=== PATIENT | female | born 1950 | race Caucasian/White ===

== ENCOUNTER 2017-06-02 15:59 | Emergency (ER) | payer MEDICARE, OTHER ==
[~2017-06-02] VITALS: Ht 154.9 cm; Wt 74.8 kg
[~2017-06-02 15:59] MED LIST: ALLO100 PO; AMIT25; AMLO5; ESTR.05TPW; FENO160; FENO160 PO; GEMF600; LEVSOD100; METO100ER; PIOG15; QUET100; TOPI100; TRAM50; TRIHYD253B
[2017-06-02 17:27] LABS: BASOPHILS ABSOLUTE AUTO 0.02 K/mm3 (0.00-0.23); BASOPHILS PERCENT AUTO 0 % (0-2); EOSINOPHILS ABSOLUTE AUTO 0.18 K/mm3 (0.00-0.68); EOSINOPHILS PERCENT AUTO 2 % (0-6); Hematocrit 35.1 % (33.0-51.0); Hemoglobin 11.3 g/dL (11.5-16.0); IMMATURE GRAN ABSOLUTE AUTO 0.08 K/mm3 (0.00-0.10); IMMATURE GRAN PERCENT AUTO 1 % (0-1); LYMPHOCYTES ABSOLUTE AUTO 3.09 K/mm3 (0.84-5.20); LYMPHOCYTES PERCENT AUTO 28 % (21-46); MONOCYTES ABSOLUTE AUTO 0.42 K/mm3 (0.16-1.47); MONOCYTES PERCENT AUTO 4 % (4-13); Mean Corpuscular HGB 31.8 pg (26.0-34.0); Mean Corpuscular HGB Conc 32.2 g/dL (31.5-36.5); Mean Corpuscular Volume 99 fL (80-100); Mean Platelet Volume 11.1 fL (9.1-12.4); NEUTROPHILS ABSOLUTE AUTO 7.33 K/mm3 (1.96-9.15); NEUTROPHILS PERCENT AUTO 66 % (41-73); Platelet Count 334 K/mm3 (150-400); RDW Standard Deviation 55.8 fL (35.1-46.3); Red Blood Cell Count 3.55 M/mm3 (3.80-5.20); White Blood Cell Count 11.12 K/mm3 (4.00-11.30)
[2017-06-02 17:51] LABS: Albumin, Blood 3.3 g/dL (3.4-5.0); Albumin/Globulin Ratio 0.8 (0.8-1.8); Bilirubin, Total 0.3 mg/dL (0.1-1.0); Bun/Creatinine Ratio 20.6 (12.0-20.0); Calcium, Blood 9.8 mg/dL (8.5-10.1); Creatinine, Blood 1.8 mg/dL (0.40-1.00); Globulin, Blood 4.1 g/dL (2.2-4.0); Potassium, Blood 3.9 mmol/L (3.5-5.5); Total Protein, Blood 7.4 g/dL (6.4-8.2)
[2017-06-02] MEDS ORDERED: QUET25 PO (19:02)
[2017-06-02] MEDS ORDERED: ASPI81CH PO (19:32)
[2017-06-02] MEDS ORDERED: DOXA2 PO (19:37)
[2017-06-02] MEDS ORDERED: RANI150 (19:38)
[2017-06-02] MEDS ORDERED: Pepcid40 MG PO (20:14)
[2017-06-02] MEDS ORDERED: Prednisone20 MG PO (20:14)
[2017-06-02] MEDS ORDERED: BENADRYL25 MG PO (20:14)
[2017-06-02] MEDS ORDERED: Norco 5-325 Ta1 EACH PO (21:33)
[2017-06-02] MEDS ORDERED: DOXY100T53 PO (21:33)
== END 2017-06-02 22:00 | disposition home or self-care (01) ==
LOC: ER 15:59
PROVIDERS: Physician Assistant
DX: I73.9 Peripheral vascular disease, unspecified (principal); L03.115 Cellulitis of right lower limb; L50.9 Urticaria, unspecified; F17.200 Nicotine dependence, unspecified, uncomplicated; Z88.0 Allergy status to penicillin; Z88.5 Allergy status to narcotic agent; Z88.8 Allergy status to other drugs, medicaments and biological substances; Z79.899 Other long term (current) drug therapy
CPT/HCPCS: 36415; 73630; 80053; 85025; 93923; 93971; 99284

== ENCOUNTER 2017-06-15 17:00 | Emergency (ER) | payer MEDICARE, OTHER ==
[~2017-06-15] VITALS: Ht 157.5 cm; Wt 61.2 kg
[~2017-06-15 17:00] MED LIST changes: +ASPI81CH PO; +BENADRYL25 MG PO; +DOXA2 PO; +DOXY100T53 PO; +Norco 5-325 Ta1 EACH PO; +Pepcid40 MG PO; +Prednisone20 MG PO; +QUET25 PO; +RANI150
[2017-06-15 18:37] LABS: BASOPHILS ABSOLUTE AUTO 0.04 K/mm3 (0.00-0.23); BASOPHILS PERCENT AUTO 0 % (0-2); EOSINOPHILS ABSOLUTE AUTO 0.21 K/mm3 (0.00-0.68); EOSINOPHILS PERCENT AUTO 2 % (0-6); Hematocrit 33.1 % (33.0-51.0); Hemoglobin 11.1 g/dL (11.5-16.0); IMMATURE GRAN ABSOLUTE AUTO 0.12 K/mm3 (0.00-0.10); IMMATURE GRAN PERCENT AUTO 1 % (0-1); LYMPHOCYTES ABSOLUTE AUTO 3.46 K/mm3 (0.84-5.20); LYMPHOCYTES PERCENT AUTO 25 % (21-46); MONOCYTES ABSOLUTE AUTO 0.55 K/mm3 (0.16-1.47); MONOCYTES PERCENT AUTO 4 % (4-13); Mean Corpuscular HGB Conc 33.5 g/dL (31.5-36.5); Mean Platelet Volume 11.5 fL (9.1-12.4); NEUTROPHILS ABSOLUTE AUTO 9.45 K/mm3 (1.96-9.15); NEUTROPHILS PERCENT AUTO 68 % (41-73); Platelet Count 380 K/mm3 (150-400); RDW Coefficient Variation 14.9 % (11.7-14.2); Red Blood Cell Count 3.47 M/mm3 (3.80-5.20); White Blood Cell Count 13.83 K/mm3 (4.00-11.30)
[2017-06-15 18:39] LABS: Mean Corpuscular Volume 95 fL (80-100)
[2017-06-15 18:50] LABS: Albumin, Blood 2.6 g/dL (3.4-5.0); Albumin/Globulin Ratio 0.9 (0.8-1.8); Bilirubin, Total 0.4 mg/dL (0.1-1.0); Bun/Creatinine Ratio 28.7 (12.0-20.0); Calcium, Blood 8.5 mg/dL (8.5-10.1); Creatinine, Blood 1.74 mg/dL (0.40-1.00); Globulin, Blood 2.9 g/dL (2.2-4.0); Total Protein, Blood 5.5 g/dL (6.4-8.2)
== END 2017-06-15 21:35 | disposition home or self-care (01) ==
LOC: ER 17:00
PROVIDERS: Emergency Medicine
DX: I73.9 Peripheral vascular disease, unspecified (principal); I10 Essential (primary) hypertension; F17.200 Nicotine dependence, unspecified, uncomplicated; Z88.0 Allergy status to penicillin; Z88.5 Allergy status to narcotic agent; Z88.8 Allergy status to other drugs, medicaments and biological substances; Z79.899 Other long term (current) drug therapy; Z79.82 Long term (current) use of aspirin
CPT/HCPCS: 36415; 80053; 83605; 85025; 87040; 93005; 93010; 99283

== ENCOUNTER 2017-06-26 16:17 | Inpatient (IN) | payer MEDICARE, OTHER ==
[~2017-06-26] VITALS: Ht 157.5 cm; Wt 60.2 kg
[2017-06-27 06:03] LABS: BASOPHILS ABSOLUTE AUTO 0.02 K/mm3 (0.00-0.23); BASOPHILS PERCENT AUTO 0 % (0-2); EOSINOPHILS ABSOLUTE AUTO 0.19 K/mm3 (0.00-0.68); EOSINOPHILS PERCENT AUTO 2 % (0-6); Hematocrit 24.8 % (33.0-51.0); IMMATURE GRAN ABSOLUTE AUTO 0.08 K/mm3 (0.00-0.10); IMMATURE GRAN PERCENT AUTO 1 % (0-1); LYMPHOCYTES ABSOLUTE AUTO 2.08 K/mm3 (0.84-5.20); LYMPHOCYTES PERCENT AUTO 18 % (21-46); MONOCYTES ABSOLUTE AUTO 0.66 K/mm3 (0.16-1.47); MONOCYTES PERCENT AUTO 6 % (4-13); Mean Corpuscular HGB 31.1 pg (26.0-34.0); Mean Corpuscular HGB Conc 32.3 g/dL (31.5-36.5); Mean Corpuscular Volume 97 fL (80-100); Mean Platelet Volume 11.3 fL (9.1-12.4); NEUTROPHILS ABSOLUTE AUTO 8.28 K/mm3 (1.96-9.15); NEUTROPHILS PERCENT AUTO 73 % (41-73); Platelet Count 243 K/mm3 (150-400); RDW Standard Deviation 53.1 fL (35.1-46.3); Red Blood Cell Count 2.57 M/mm3 (3.80-5.20); White Blood Cell Count 11.31 K/mm3 (4.00-11.30)
[2017-06-27 06:18] LABS: Bun/Creatinine Ratio 12.3 (12.0-20.0); Calcium, Blood 8.6 mg/dL (8.5-10.1); Creatinine, Blood 1.38 mg/dL (0.40-1.00)
[2017-06-27 06:19] LABS: International Normalized Ratio 1.13; Prothrombin Time Results 11.8 Sec (9.7-11.5)
[2017-06-28 05:11] LABS: Bun/Creatinine Ratio 11.3 (12.0-20.0); Calcium, Blood 8.4 mg/dL (8.5-10.1); Creatinine, Blood 1.42 mg/dL (0.40-1.00); Potassium, Blood 4.1 mmol/L (3.5-5.5)
[2017-06-28 08:46] LABS: Hemoglobin 8.1 g/dL (11.5-16.0)
[2017-06-28 13:43] LABS: Hemoglobin 7.9 g/dL (11.5-16.0)
[2017-06-29 04:05] LABS: BASOPHILS ABSOLUTE AUTO 0.01 K/mm3 (0.00-0.23); BASOPHILS PERCENT AUTO 0 % (0-2); EOSINOPHILS ABSOLUTE AUTO 0.17 K/mm3 (0.00-0.68); EOSINOPHILS PERCENT AUTO 1 % (0-6); Hematocrit 23.2 % (33.0-51.0); Hemoglobin 7.4 g/dL (11.5-16.0); IMMATURE GRAN ABSOLUTE AUTO 0.07 K/mm3 (0.00-0.10); IMMATURE GRAN PERCENT AUTO 1 % (0-1); LYMPHOCYTES ABSOLUTE AUTO 1.59 K/mm3 (0.84-5.20); LYMPHOCYTES PERCENT AUTO 12 % (21-46); MONOCYTES ABSOLUTE AUTO 0.76 K/mm3 (0.16-1.47); MONOCYTES PERCENT AUTO 6 % (4-13); Mean Corpuscular HGB 31.6 pg (26.0-34.0); Mean Corpuscular HGB Conc 31.9 g/dL (31.5-36.5); Mean Corpuscular Volume 99 fL (80-100); Mean Platelet Volume 11.2 fL (9.1-12.4); NEUTROPHILS PERCENT AUTO 80 % (41-73); Platelet Count 276 K/mm3 (150-400); RDW Coefficient Variation 15.4 % (11.7-14.2); RDW Standard Deviation 55.3 fL (35.1-46.3); Red Blood Cell Count 2.34 M/mm3 (3.80-5.20)
[2017-06-29 04:36] LABS: Calcium, Blood 8.3 mg/dL (8.5-10.1); Creatinine, Blood 1.4 mg/dL (0.40-1.00); Potassium, Blood 3.8 mmol/L (3.5-5.5)
[2017-06-29] MEDS ORDERED: ATOR10 PO (14:23)
[2017-06-29] MEDS ORDERED: FAMO20 PO (14:24)
[2017-06-29] MEDS ORDERED: CLOP75 PO (14:24)
[2017-06-29] MEDS ORDERED: Nicotine Patch1 EAC5 TOP (14:40)
[2017-06-29] MEDS ORDERED: LISI20 PO (14:40)
[2017-06-29] MEDS ORDERED: Bactrim Ds Tab1 EACH PO (14:41)
[2017-06-29] MEDS ORDERED: TOPI100 PO (14:42)
== END 2017-06-29 15:55 | disposition home or self-care (01) | DRG 253 ==
LOC: ICUW 16:17 → MEDS 16:17 → ICUW 16:18 → MEDS 16:18 → ICUW 06-28 11:14 → MEDS 06-28 11:14 → ICUW 06-28 11:14
PROVIDERS: Internal Medicine Interventional Cardiology
PROC: 3E0234Z Introduction of Serum, Toxoid and Vaccine into Muscle, Percutaneous Approach (ICD-10-PCS; 2017-06-27)
PROC: 047L3DZ Dilation of Left Femoral Artery with Intraluminal Device, Percutaneous Approach (ICD-10-PCS; principal; 2017-06-28)
PROC: 047K3DZ Dilation of Right Femoral Artery with Intraluminal Device, Percutaneous Approach (ICD-10-PCS; 2017-06-28)
PROC: 047D3DZ Dilation of Left Common Iliac Artery with Intraluminal Device, Percutaneous Approach (ICD-10-PCS; 2017-06-28)
PROC: 047C3DZ Dilation of Right Common Iliac Artery with Intraluminal Device, Percutaneous Approach (ICD-10-PCS; 2017-06-28)
PROC: 047J3DZ Dilation of Left External Iliac Artery with Intraluminal Device, Percutaneous Approach (ICD-10-PCS; 2017-06-28)
PROC: 047H3DZ Dilation of Right External Iliac Artery with Intraluminal Device, Percutaneous Approach (ICD-10-PCS; 2017-06-28)
PROC: B41D1ZZ Fluoroscopy of Aorta and Bilateral Lower Extremity Arteries using Low Osmolar Contrast (ICD-10-PCS; 2017-06-28)
DX: I70.239 Atherosclerosis of native arteries of right leg with ulceration of unspecified site (principal); I70.92 Chronic total occlusion of artery of the extremities; J44.9 Chronic obstructive pulmonary disease, unspecified; E03.9 Hypothyroidism, unspecified; L97.219 Non-pressure chronic ulcer of right calf with unspecified severity; L97.419 Non-pressure chronic ulcer of right heel and midfoot with unspecified severity; I70.0 Atherosclerosis of aorta; I35.0 Nonrheumatic aortic (valve) stenosis; F10.11 Alcohol abuse, in remission; F17.210 Nicotine dependence, cigarettes, uncomplicated; F31.9 Bipolar disorder, unspecified; I12.9 Hypertensive chronic kidney disease with stage 1 through stage 4 chronic kidney disease, or unspecified chronic kidney disease; R79.89 Other specified abnormal findings of blood chemistry; N18.9 Chronic kidney disease, unspecified; Z23 Encounter for immunization; Z86.73 Personal history of transient ischemic attack (TIA), and cerebral infarction without residual deficits; Z79.82 Long term (current) use of aspirin; Z79.51 Long term (current) use of inhaled steroids; Z79.899 Other long term (current) drug therapy; Z88.5 Allergy status to narcotic agent; Z88.0 Allergy status to penicillin
CPT/HCPCS: 36415; 37221; 37222; 37223; 75625; 75716; 80048; 85014; 85018; 85025; 85347; 85610; 85730; 93306; 99152; 99153; C1725; C1769; C1876; C1887; C1894; G0008; G0378; J0360; J1644; J1956; J2250; J2720; J3010; J7030; J7040; Q2038; Q9967

== ENCOUNTER 2017-07-01 14:59 | Emergency (ER) | payer MEDICARE, OTHER ==
[~2017-07-01] VITALS: Ht 165.1 cm; Wt 61.2 kg
[~2017-07-01 14:59] MED LIST changes: +ATOR10 PO; +Bactrim Ds Tab1 EACH PO; +CLOP75 PO; +FAMO20 PO; +LISI20 PO; +Nicotine Patch1 EAC5 TOP; +TOPI100 PO
[2017-07-01 15:30] LABS: Calcium, Ionized (POC) 1.23 mmol/L (1.10-1.46); Chloride (POC) 108 mmol/L (98-108); Creatinine (POC) 2.5 mg/dL (0.6-1.0); Glucose (ISTAT POC) 128 mg/dL (70-99); Hemoglobin (POC) 5.1 g/dL (12.0-16.0); Potassium (POC) 5.1 mmol/L (3.5-5.5); Sodium (POC) 135 mmol/L (135-148); Total CO2 (POC) 19 mmol/L (21-32)
[2017-07-01 15:36] LABS: PO2 Arterial 125 mmHg (80-100); pH Blood Arterial 7.45 (7.35-7.45)
[2017-07-01 16:10] LABS: Alanine Aminotransfer (ALT/SGP 19 U/L (12-78); Albumin, Blood 1.5 g/dL (3.4-5.0); Albumin/Globulin Ratio 0.4 (0.8-1.8); Alk Phos 61 U/L (50-136); Anion Gap 11 mmol/L (6-16); Aspartate Aminotrans (AST/SGOT 16 U/L (12-37); Bilirubin, Total 0.2 mg/dL (0.1-1.0); Blood Urea Nitrogen 55 mg/dL (8-24); Bun/Creatinine Ratio 25.8 (12.0-20.0); CO2, Blood 19 mmol/L (21-32); Calcium, Blood 8.8 mg/dL (8.5-10.1); Chloride, Blood 108 mmol/L (98-108); Creatinine, Blood 2.13 mg/dL (0.40-1.00); Ethanol (Alcohol), Blood, Med <3 mg/dL; Globulin, Blood 3.8 g/dL (2.2-4.0); Glomerular Filtration Rate 24 (60-); Glucose, Blood 128 mg/dL (70-99); Magnesium, Blood 2.1 mg/dL (1.6-2.4); Potassium, Blood 5.1 mmol/L (3.5-5.5); Sodium, Blood 138 mmol/L (136-145); Total Protein, Blood 5.3 g/dL (6.4-8.2); Troponin I 0.103 ng/mL (0.000-0.040)
[2017-07-01 16:14] LABS: BASOPHILS ABSOLUTE AUTO 0.01 K/mm3 (0.00-0.23); BASOPHILS PERCENT AUTO 0 % (0-2); EOSINOPHILS ABSOLUTE AUTO 0.01 K/mm3 (0.00-0.68); EOSINOPHILS PERCENT AUTO 0 % (0-6); IMMATURE GRAN ABSOLUTE AUTO 0.33 K/mm3 (0.00-0.10); IMMATURE GRAN PERCENT AUTO 2 % (0-1); LYMPHOCYTES ABSOLUTE AUTO 2.29 K/mm3 (0.84-5.20); LYMPHOCYTES PERCENT AUTO 13 % (21-46); MONOCYTES ABSOLUTE AUTO 1.05 K/mm3 (0.16-1.47); MONOCYTES PERCENT AUTO 6 % (4-13); Mean Corpuscular HGB 30.7 pg (26.0-34.0); Mean Corpuscular HGB Conc 30.9 g/dL (31.5-36.5); Mean Corpuscular Volume 99 fL (80-100); Mean Platelet Volume 11.3 fL (9.1-12.4); NEUTROPHILS ABSOLUTE AUTO 14.61 K/mm3 (1.96-9.15); NEUTROPHILS PERCENT AUTO 80 % (41-73); NRBC ABSOLUTE 0.02 K/mm3 (0.00-0.02); NRBC Auto 0.1 /100 WBC (0.0-0.2); Platelet Count 370 K/mm3 (150-400); RDW Coefficient Variation 15.5 % (11.7-14.2); RDW Standard Deviation 56.2 fL (35.1-46.3); Red Blood Cell Count 1.63 M/mm3 (3.80-5.20)
[2017-07-01 16:17] LABS: Hematocrit 16.2 % (33.0-51.0)
[2017-07-01 16:51] LABS: Influenza A Negative (NEGATIVE); Influenza B Negative (NEGATIVE)
[2017-07-01 16:59] LABS: Source, Urine Catheter
[2017-07-01 17:22] LABS: Bilirubin, Urine Neg (Neg); Blood, Urine Neg (Neg); Glucose Qualitative, Urine Neg (Neg); Ketones, Urine Neg (Neg); Leukocyte Esterase, Urine Neg (Neg); Nitrite, Urine Neg (Neg); Protein, Urine 1+ (Neg); Specific Gravity, Urine 1.015 (1.003-1.022); Urobilinogen, Urine NORM (Normal)
[2017-07-01 17:34] LABS: International Normalized Ratio 1.22; Prothrombin Time Results 12.8 Sec (9.7-11.5)
[2017-07-01 17:34] LABS: U Amphetamine Screen Not Detected; U Barbituate Screen Not Detected; U Benzodiazapine Screen Not Detected; U Buprenorphine Screen Not Detected; U Cannabinoids Screen Not Detected; U Cocaine Screen Not Detected; U Methadone Screen Not Detected; U Methamphetamine Screen Not Detected; U Opiates Screen Not Detected; U Oxycodone Screen Not Detected; U Phencyclidine Screen Not Detected; U Propoxyphene Screen Not Detected
[2017-07-01 17:38] LABS: Appearance, Urine Clear (Clear); Color, Urine Yellow (P-Yellow)
[2017-07-01 19:43] LABS: BASOPHILS ABSOLUTE AUTO 0.02 K/mm3 (0.00-0.23); BASOPHILS PERCENT AUTO 0 % (0-2); EOSINOPHILS ABSOLUTE AUTO 0.01 K/mm3 (0.00-0.68); EOSINOPHILS PERCENT AUTO 0 % (0-6); Hematocrit 23.3 % (33.0-51.0); Hemoglobin 7.5 g/dL (11.5-16.0); IMMATURE GRAN ABSOLUTE AUTO 0.27 K/mm3 (0.00-0.10); IMMATURE GRAN PERCENT AUTO 2 % (0-1); LYMPHOCYTES ABSOLUTE AUTO 2.26 K/mm3 (0.84-5.20); LYMPHOCYTES PERCENT AUTO 15 % (21-46); MONOCYTES ABSOLUTE AUTO 1.02 K/mm3 (0.16-1.47); MONOCYTES PERCENT AUTO 7 % (4-13); Mean Corpuscular HGB 29.9 pg (26.0-34.0); Mean Corpuscular HGB Conc 32.2 g/dL (31.5-36.5); Mean Platelet Volume 10.9 fL (9.1-12.4); NEUTROPHILS ABSOLUTE AUTO 11.63 K/mm3 (1.96-9.15); NEUTROPHILS PERCENT AUTO 76 % (41-73); Platelet Count 294 K/mm3 (150-400); RDW Coefficient Variation 16.1 % (11.7-14.2); RDW Standard Deviation 53.6 fL (35.1-46.3); Red Blood Cell Count 2.51 M/mm3 (3.80-5.20); White Blood Cell Count 15.21 K/mm3 (4.00-11.30)
[2017-07-01 19:50] LABS: Mean Corpuscular Volume 93 fL (80-100)
== END 2017-07-01 20:55 | disposition short-term general hospital (02) ==
LOC: ER 14:59
PROVIDERS: Emergency Medicine
DX: K92.2 Gastrointestinal hemorrhage, unspecified (principal); D50.0 Iron deficiency anemia secondary to blood loss (chronic); I24.8 Other forms of acute ischemic heart disease; R79.89 Other specified abnormal findings of blood chemistry; R41.82 Altered mental status, unspecified; I10 Essential (primary) hypertension; F17.200 Nicotine dependence, unspecified, uncomplicated; Z88.0 Allergy status to penicillin; Z88.5 Allergy status to narcotic agent; Z88.8 Allergy status to other drugs, medicaments and biological substances; Z79.899 Other long term (current) drug therapy; Z79.82 Long term (current) use of aspirin
CPT/HCPCS: 36415; 36430; 36600; 51702; 70450; 71045; 74176; 80047; 80053; 82272; 82803; 83605; 83690; 83735; 83880; 84484; 85014; 85025; 85610; 85730; 86850; 86900; 86901; 86923; 87040; 87804; 93005; 93010; 96361; 96365; 96367; 96368; 96375; 96376; 99285; C9113; G0480; J1956; J2405; J3370; J7030; J7120; P9016

== ENCOUNTER → 2018-06-11 | Outpatient (CLI) | payer MEDICARE, OTHER ==
[2018-06-11 19:23] LABS: Adenovirus F 40/41 Not Detected (NOT DETECT); Astrovirus Not Detected (NOT DETECT); Campylobacter Sp Not Detected (NOT DETECT); Cryptosporidium Not Detected (NOT DETECT); Cyclospora Cayetanensis Not Detected (NOT DETECT); E. Coli O157 Not Detected (NOT DETECT); Entamoeba Histolytica Not Detected (NOT DETECT); Enteroaggregative E. coli-EAEC Not Detected (NOT DETECT); Enteropathogenic E. coli-EPEC Not Detected (NOT DETECT); Enterotoxigenic E. coli-ETEC Not Detected (NOT DETECT); Giardia Lamblia Not Detected (NOT DETECT); Norovirus GI/GII Not Detected (NOT DETECT); Plesiomonas Shigelloides Not Detected (NOT DETECT); Rotavirus A Not Detected (NOT DETECT); Salmonella Sp Not Detected (NOT DETECT); Sapovirus Not Detected (NOT DETECT); Shiga Toxin-prod E. coli-STEC Not Detected (NOT DETECT); Shigella/Enteroin E. coli-EIEC Not Detected (NOT DETECT); Vibrio Cholerae Not Detected (NOT DETECT); Vibrio Sp Not Detected (NOT DETECT); Yersinia Enterocolitica Not Detected (NOT DETECT)
== END ==
LOC: LAB SHORT 16:38 → LAB 16:38
PROVIDERS: Nurse Practitioner Family
DX: R19.7 Diarrhea, unspecified (principal)
CPT/HCPCS: 87507

== ENCOUNTER 2018-11-06 06:42 | Day surgery (SDC) | payer MEDICARE, OTHER ==
[~2018-11-06] VITALS: Ht 154.9 cm; Wt 65.5 kg
[~2018-11-06 06:42] MED LIST changes: +ACET500 PO; +ALBU90OI INH; +AMIT25 PO; +ATOR20 PO; +Anti-Diarrheal2 M1 PO; +COLE625 PO; +DONE5 PO; +FURO20 PO; +LEVSOD88 PO; +Lisinopril2.5 MG PO; +NICO21TP TOP; +NIFE30ER PO; +Seroquel50 MG PO; +Toprol Xl50 MG PO; +VITAMIN C500 M1 PO; +VITAMIN D32000 UNIT PO; +Zantac150 MG PO; +Zyloprim100 MG PO
--- NOTE | 2018-11-06 10:04 | NUR ---
PT RETURNED TO RECOVERY ROOM ON BED. PT DENIES PAIN. LEFT PEDAL ACCESS SITE SOFT NON-TENDER WITH NO HEMATOMA AND NO PULSATILE BLEEDING AND INTACT DRESSING. CALL LIGHT IN REACH.
--- NOTE | 2018-11-06 11:05 | NUR ---
NO CHANGES TO LEFT PEDAL SITE. PT SITTING UP EATING BREAKFAST. SEE NEW ORDERS FOR HTN.
--- NOTE | 2018-11-06 11:57 | NUR ---
DISCHARGE INSTRUCTIONS REVIEWED WITH PT AND CAREGIVER FAINA AND ALL QUESTIONS ANSWERED. 20 IV DISCONTINUED FROM RIGHT FOREARM WITH INTACT CANNULA. PT ESCORTED OUT BY FAINA IN WHEELCHAIR.
== END 2018-11-06 12:00 | disposition home or self-care (01) ==
LOC: MHTC 06:42
DX: I70.202 Unspecified atherosclerosis of native arteries of extremities, left leg (principal); I10 Essential (primary) hypertension; Z88.0 Allergy status to penicillin; Z88.5 Allergy status to narcotic agent; Z88.8 Allergy status to other drugs, medicaments and biological substances; Z79.899 Other long term (current) drug therapy; Z79.82 Long term (current) use of aspirin; Z79.01 Long term (current) use of anticoagulants
CPT/HCPCS: 37224; 75716; 75774; 99152; 99153; C1725; C1769; C1887; C1894; J1644; J2250; J3010; J7030; Q9967

== ENCOUNTER 2020-05-18 15:37 | Inpatient (IN) | payer MEDICARE, OTHER ==
[~2020-05-18] VITALS: Ht 152.4 cm; Wt 58.8 kg
[~2020-05-18 15:37] MED LIST changes: -ALBU90OI INH; -AMIT25 PO; +Amitriptyline H25 MG PO; +Aspirin EC81 MG PO; +LEVSOD100 PO; -LEVSOD88 PO; +Seroquel Xr50 MG PO; -Seroquel50 MG PO; +TOPI25 PO; -Toprol Xl50 MG PO; -Zyloprim100 MG PO
[2020-05-18 16:21] LABS: BASOPHILS ABSOLUTE AUTO 0.03 K/mm3 (0.00-0.23); BASOPHILS PERCENT AUTO 0 % (0-2); EOSINOPHILS PERCENT AUTO 1 % (0-6); Hematocrit 39.3 % (33.0-51.0); Hemoglobin 12.5 g/dL (11.5-16.0); IMMATURE GRAN ABSOLUTE AUTO 0.06 K/mm3 (0.00-0.10); IMMATURE GRAN PERCENT AUTO 1 % (0-1); LYMPHOCYTES ABSOLUTE AUTO 1.48 K/mm3 (0.84-5.20); LYMPHOCYTES PERCENT AUTO 13 % (21-46); MONOCYTES ABSOLUTE AUTO 0.52 K/mm3 (0.16-1.47); MONOCYTES PERCENT AUTO 5 % (4-13); Mean Corpuscular HGB 32.2 pg (26.0-34.0); Mean Corpuscular HGB Conc 31.8 g/dL (31.5-36.5); Mean Corpuscular Volume 101 fL (80-100); Mean Platelet Volume 11.5 fL (9.1-12.4); NEUTROPHILS ABSOLUTE AUTO 9.07 K/mm3 (1.96-9.15); NEUTROPHILS PERCENT AUTO 81 % (41-73); NRBC ABSOLUTE 0.02 K/mm3 (0.00-0.02); NRBC Auto 0.2 /100 WBC (0.0-0.2); Platelet Count 195 K/mm3 (150-400); RDW Coefficient Variation 16.6 % (11.7-14.2); Red Blood Cell Count 3.88 M/mm3 (3.80-5.20); White Blood Cell Count 11.26 K/mm3 (4.00-11.30)
[2020-05-18 16:39] LABS: International Normalized Ratio 0.92; Prothrombin Time Results 9.9 Sec (9.7-11.5)
[2020-05-18 16:44] LABS: Ethanol (Alcohol), Blood, Med <3 mg/dL
[2020-05-18 16:45] LABS: Alanine Aminotransfer (ALT/SGP 78 U/L (12-78); Albumin, Blood 3.1 g/dL (3.4-5.0); Albumin/Globulin Ratio 0.8 (0.8-1.8); Alk Phos 156 U/L (50-136); Anion Gap 11 mmol/L (6-16); Aspartate Aminotrans (AST/SGOT 207 U/L (12-37); Bilirubin, Total 0.2 mg/dL (0.1-1.0); Blood Urea Nitrogen 36 mg/dL (8-24); Bun/Creatinine Ratio 15.5 (12.0-20.0); CO2, Blood 14 mmol/L (21-32); Chloride, Blood 111 mmol/L (98-108); Creatinine, Blood 2.32 mg/dL (0.40-1.00); Globulin, Blood 3.7 g/dL (2.2-4.0); Glomerular Filtration Rate 22 (60-); Glucose, Blood 97 mg/dL (70-99); Potassium, Blood 4.9 mmol/L (3.5-5.5); Sodium, Blood 136 mmol/L (136-145); Total Protein, Blood 6.8 g/dL (6.4-8.2)
[2020-05-18 17:48] LABS: U Amphetamine Screen Not Detected; U Barbituate Screen Not Detected; U Benzodiazapine Screen Not Detected; U Buprenorphine Screen Not Detected; U Cannabinoids Screen Not Detected; U Cocaine Screen Not Detected; U Methadone Screen Not Detected; U Methamphetamine Screen Not Detected; U Opiates Screen DETECTED; U Oxycodone Screen Not Detected; U Phencyclidine Screen Not Detected; U Propoxyphene Screen Not Detected
--- NOTE | 2020-05-19 05:24 | NUR ---
PCU ADMIT / SHIFT SUMMARY PT BROUGHT TO PCU-13 BY STEPHANIE FROM ER @ AP[facility]OX 1930 THIS SHIFT. PT SLID OVER FROM RNEY TO PCU BED BY 4 STAFF. PT ALERT, ABLE TO STATE NAME & CLEARLY. SPEECH THEN INTERMITTENTLY GARBLED & INCOMPREHENSIBLE. PT UNABLE TO ANSWER MOST Q's APPROPRIATELY. PT REPORTS LIVING W/ [id number] BUT CAN'T REMEMBER [id number]'s NAME. PT REPORTS LAST BM "SOME TIME, 94." PT W/ R FACIAL DROOP. BILAT HAND LIFT TRUCK OPERATOR EQUAL. BP ELEVATED, OTHERWISE VSS. SPO2 > 92% ON 2L NC, TITRATED TO RA. MONITOR SHOWS SR-ST, HR 80's-110. BRUISING NOTED SCATTERED T/O. COCCYX/BUTTOCKS BRIGHT RED, BARRIER CREAM & MEPILEX DRESSING APPLIED. PT NPO, AWAITING ST EVAL. NS GTT INFUSING PER ORDERS. BED ALARM ON.
[2020-05-19 17:12] LABS: Source, Urine Catheter
[2020-05-19 17:18] LABS: Appearance, Urine Clear (Clear); Bilirubin, Urine Neg (Neg); Blood, Urine 4+ (Neg); Color, Urine Yellow (P-Yellow); Glucose Qualitative, Urine Neg (Neg); Ketones, Urine Neg (Neg); Leukocyte Esterase, Urine Neg (Neg); Nitrite, Urine Neg (Neg); Protein, Urine 4+ (Neg); Specific Gravity, Urine 1.015 (1.003-1.022); Urobilinogen, Urine NORM (Normal)
[2020-05-19 17:30] LABS: Amorphous Light (0-Heavy); Bacteria Not Seen /hpf; Red Blood Cells, Urine Not Seen /hpf (0-2); Squamous Epithelial Cells Not Seen /hpf (Few); White Blood Cells, Urine Not Seen /hpf (0-5)
--- NOTE | 2020-05-19 17:50 | NUR ---
PT SUMMARY: PT'S CODE STATUS CHANGED TO DNR PER DR DIAZ, PALLIATIVE CARE NURSE MADE AWARE, DAUGHTER FAINA TO BRING IN POLST AT HOME THAT CURRENTLY SAYS DNR. DAUGHTER ALSO STATED THAT PT DRINKS 2 BEERS A DAY AND IS A HEAVY SMOKER APPARENTLY ALCOHOL LEVEL IS NEGATIVE UPON ADMISSION NO CIWA FOR NOW PER DR DIAZ, PT STILL HAS SOME CONFUSION AND SOME HALLUCINATIONS OTHER THAN THAT NO TREMORS NOTED. PT IS ALERT AND ORIENTED TO SELF AND SURROUNDINGS BUT GETS CONFUSED AFTER LONG CONVERSATIONS SPEECH BECOMES MORE GARBLED AND GETS MORE FRUSTRATED FOR PT TO TALK. MILD RIGHT FACIAL DROOP, OTHERWISE GENERALIZED WEAKNESS OVERALL, PT/OT ORDERED, PT WAS ABLE TO PARTICIPATE REQUIRES MAX ASSIST PER PT RECOMMENDED SNF. ST EVAL ALSO WAS DONE PT STARTED ON PUREE DIET WITH FEEDING ASSIST. VITALS HRR SINUS/SINUS TACH 90-100'S, BP SYSTOLIC 150-170'S, SATS ABOVE 95% ON RA, AFEBIRLE. PT HAD 2 INCONTINENT VOIDS FOR THE SHIFT BUT NOT MUCH ON THE ATTENDS, PT HAS PAIN UPON PUTTING PRESSURE ON TOP OF THE BLADDER. PT WAS BLADDER SCANNED AND SHOWS >1000MLS URINE RETAINED, ORDER RECEIVED TO PLACE LOPEZ IN, PT DRAINED 1800MLS URINE OUT. UA SENT TO LAB. PT HAS BEEN IN BED MOST OF THE SHIFT, REPOSITIONED Q2 HRS, CALL LIGHTS WITHIN REACH WILL MONITOR UNTIL END OF SHIFT.
[2020-05-20 04:10] LABS: Hematocrit 32.3 % (33.0-51.0); Hemoglobin 10.1 g/dL (11.5-16.0); Mean Corpuscular HGB 31.5 pg (26.0-34.0); Mean Corpuscular HGB Conc 31.3 g/dL (31.5-36.5); Mean Corpuscular Volume 101 fL (80-100); NRBC ABSOLUTE 0.02 K/mm3 (0.00-0.02); NRBC Auto 0.3 /100 WBC (0.0-0.2); Platelet Count 197 K/mm3 (150-400); RDW Coefficient Variation 16.7 % (11.7-14.2); RDW Standard Deviation 61.7 fL (35.1-46.3); Red Blood Cell Count 3.21 M/mm3 (3.80-5.20); White Blood Cell Count 7.25 K/mm3 (4.00-11.30)
[2020-05-20 04:39] LABS: Albumin, Blood 2.6 g/dL (3.4-5.0); Albumin/Globulin Ratio 0.7 (0.8-1.8); Bilirubin, Total 0.2 mg/dL (0.1-1.0); Calcium, Blood 8.2 mg/dL (8.5-10.1); Creatinine, Blood 1.84 mg/dL (0.40-1.00); Globulin, Blood 3.5 g/dL (2.2-4.0); Potassium, Blood 4.5 mmol/L (3.5-5.5); Thyroid Stimulating Hormone 4.88 uIU/mL (0.360-4.800); Total Protein, Blood 6.1 g/dL (6.4-8.2)
--- NOTE | 2020-05-20 05:38 | NUR ---
SHIFT SUMMARY NO ACUTE CHANGES THIS SHIFT. PT ALERT, ORIENTED TO SELF, PLACE, AND PERSON. ANSWERS SOME QUESTIONS APPROPRIATELY, BUT WHEN ENGAGED IN A LENGTHY CONVERSATION, WORDS BECOME GARBLED AND NONSENSICAL. SP02>92% ON RA. TELEMETRY READS ST/SR, 80-100'S. PT HAS LOPEZ CATHETER DRAINING TO GRAVITY. PT STATED SHE FELT LIKE SHE NEEDED TO HAVE A BM THIS SHIFT, USED BEDPAN WITH NO SUCCESS. PT DENIED PAIN. Q2H REPOSITIONING WELL ORAL CARE DONE CALL LIGHT IN REACH. PT SLEPT OFF AND ON T/O THE NIGHT. WILL GIVE REPORT TO ONCOMING SHIFT.
--- NOTE | 2020-05-20 18:26 | NUR ---
SHIFT SUMMARY- PT IS A/O, PLESANT AND COOPERATIVE. SHE IS EATING AND DRINKING WELL. HER DIET WAS ADVANCED BY ST. AND SHE IS TOLERATING WELL. SHE WORKED WITH PT AND OT THIS SHIFT. SHE AMBULATED TO THE RESTROOM AND WAS UP TO THE CHAIR THIS AFTERNOON. HER SON VISITED THIS AFTERNOON. SHE WILL TRANSFER TO MEDICAL FLOOR REPORT GIVEN TO ELZA TANNER. HER BED IS IN THE LOW POSITION AND CALL LIGHT WITHIN REACH.
--- NOTE | 2020-05-20 19:04 | NUR ---
ASSUMED CARE OF PATIENT. PATIENT ORIENTED TO ROOM. WILL REPORT TO SPRING WINDER RN.
[2020-05-21 06:09] LABS: Bun/Creatinine Ratio 21.3 (12.0-20.0); Calcium, Blood 9.1 mg/dL (8.5-10.1); Creatinine, Blood 1.55 mg/dL (0.40-1.00); Potassium, Blood 4.8 mmol/L (3.5-5.5); Thyroxine (T4) 3.2 ug/dL (4.8-13.9)
--- NOTE | 2020-05-21 08:11 | NUR ---
PATIENT PLEASANT AND COOPERATIVE WITH CARE. ALERT AND ORIENTED X4 IN THE EVENING AND AGAIN THIS MORNING. APPEARED TO SLEEP WELL, HOWEVER VERY ANIMATED WHILE SLEEPING WITH HAND MOVEMENTS AND TALK. VERY CANDID DISCUSSING HER bIpOLAR DISORDER AND THE DIFFICULTIES IT HAS CAUSED HER. PATIENT HAD NO COMPLAINTS OF DISCOMFORT OVERNIGHT. STILL HOPING TO GO TO [facility] WHEN READY
--- NOTE | 2020-05-21 18:39 | NUR ---
SHIFT SUMMARY- PT IS A/O, PLESANT AND COOPERATIVE. SHE IS EATING AND DRINKING WELL. HER DAUGHTER WAS AT BEDSIDE THIS AFTERNOON. HER BLOOD PRESSURE HAS BEEN ELEVATED THIS SHIFT. SPOKE WITH DR. DIAZ, HE ADJUSTED MEDICATIONS. SHE HAD A BM THIS SHIFT. HER BED IS IN THE LOW POSITION AND HER CALL LIGHT IS WITHIN REACH.
--- NOTE | 2020-05-22 03:15 | NUR ---
SHIFT SUMMARY PATIENT HAD NO ACUTE CHANGES OBSERVED. AXOX 3 AND ONE ASSIST WITH FWW/GAIT BELT TO BSC. TALKS IN HER SLEEP. INITIAL BP ELEVATED BEFORE BP MEDICATION GIVEN. DENIES PAIN. SOB, AND N/V. AFEBRILE. PIV REMAINS INTACT. ENTERPRISE SYSTEMS ENGINEER REPORTS NSR 99. LOPEZ PATENT AND DRAINING TO GRAVITY FOR RETENTION. CALL LIGHT IN REACH. BED IN LOWEST POSITION. WILL CONTINUE TO MONITOR UNTIL DAY SHIFT NURSE ASSUMES CARE.
--- NOTE | 2020-05-22 18:10 | NUR ---
SHIFT SUMMARY PT IS A&OX3. PT KNOWS NAME, & WHERE SHE IS. WHEN TALKING WITH PT SHE WILL GO OFF TOPIC AND TALK ABOUT [facility] OR FAMILY. PT HAS BEEN PLESANT AND ACCEPTING OF CARE. PT USES CALL LIGHT TO MAKE NEEDS KNOWN. PT HAD PAIN DURING SHIFT, TREATED WITH APAP. PT DENIES N/V DURING SHIFT. IV WAS LEAKING WHEN EXAMED DURING SHIFT, RECEIVED NO IV ACCESS ORDER. PT IS CURENTLY EATING DINNER AND WATCHING TV. CALL LIGHT W/IN REACH.
--- NOTE | 2020-05-23 03:26 | NUR ---
SHIFT SUMMARY PATIENT HYPERTENSIVE AT SHIFT CHANGE 197/92 AND SCHEDULE BP MEDICATION GIVEN WITH PO APRESOLINE 10 MG. RECHECKED AT 150/96. AXO X 3 AND ONE ASSIST TO BSC. TAKES MEDICATION WHOLE X ONE EACH WITH APPLESAUCE. NO IV ACCESS. LOPEZ PATENT AND DRAINING TO GRAVITY. DENIES PAIN, SOB, AND N/V. CALL LIGHT IN REACH. BED IN LOWEST POSITION. WILL CONTINUE TO MONITOR UNTIL DAY SHIFT NURSE ASSUMES CARE.
[2020-05-23 08:17] LABS: Hematocrit 37.8 % (33.0-51.0); Hemoglobin 12.2 g/dL (11.5-16.0); Mean Corpuscular HGB Conc 32.3 g/dL (31.5-36.5); Mean Corpuscular Volume 99 fL (80-100); Mean Platelet Volume 11.9 fL (9.1-12.4); Platelet Count 225 K/mm3 (150-400); RDW Coefficient Variation 16.4 % (11.7-14.2); RDW Standard Deviation 59.7 fL (35.1-46.3); Red Blood Cell Count 3.81 M/mm3 (3.80-5.20); White Blood Cell Count 10.86 K/mm3 (4.00-11.30)
[2020-05-23 08:28] LABS: Bun/Creatinine Ratio 19.3 (12.0-20.0); Calcium, Blood 9.4 mg/dL (8.5-10.1); Creatinine, Blood 1.71 mg/dL (0.40-1.00); Potassium, Blood 4.6 mmol/L (3.5-5.5)
--- NOTE | 2020-05-23 18:05 | NUR ---
SHIFT SUMMARY PT WOKE FOR SHIFT REPORT THIS AM. ADMITTED FOR STROKE; RESOLVING. PER SHIFT REPORT, PT'S SPEECH IMPROVED. NO DEFICITS TO EXTREMTIES NOTED. PT'S SPEECH IS MOSTLY CLEAR BUT SOMETIMES DOES NOT MAKE MUCH SENSE. LOPEZ TO GRAVITY; PATENT. PLACED FOR RETENSION PER REPORT. DISCUSSED WITH DR DIAZ; LOPEZ TO BE D/C'D. LOPEZ REMOVED AT 1245. PT HAS BEEN UP TO VOID NEEDED THRU OUT THE DAY. PT'S BP HAS REMAINED ELEVATED; SEE CHART. BP MEDS GIVEN PER EMAR WITH MINIMAL EFFECT. DR DIAZ NOTIFIED, NEW ORDERS RECEIVED. BP MEDS GIVEN PER ORDERS AND CONTINUING TO MONITOR. PT WAITING PLACEMENT PER REPORT. PT HAS BEEN VERY PLEASANT AND CO-OP WITH CARE. NO C/O. CALL LT IN REACH.
--- NOTE | 2020-05-24 03:10 | NUR ---
SHIFT SUMMARY PATIENT BP DROPPED FROM 192/84 TO 102/67 FROM DAY SHIFT TO NOC SHIFT. DAY RN REPORTS HOSPITALIST SAID TO GIVE NEXT NOC BP MEDICATION ON DAY SHIFT. AXOX 3 WITH CONFUSION AT TIMES. ONE ASSIST TO BSC. TAKES MEDICATION WHOLE X ONE EACH WITH APPLE SAUCE. DENIES PAIN, SOB, AND N/V. NO IV ACCESS. VSS/AFEBRILE. CALL LIGHT IN REACH. BED IN LOWEST POSITION. WILL CONTINUE TO MONITOR UNTIL DAY SHIFT NURSE ASSUMES CARE.
[2020-05-24 13:22] LABS: Influenza A, PCR Negative (NEGATIVE); Influenza B, PCR Negative (NEGATIVE); Resp Syncytial Virus, PCR Negative (NEGATIVE); SARS-Cov-2 (COVID-19) PCR, MMC Negative (NEGATIVE)
--- NOTE | 2020-05-24 16:25 | NUR ---
DISCHARGE PT DISCHARGED TO [facility]. THIS RN CALLED REPORT TO RNTESS. PT TRANSFERERED TO WHEELCHAIR VAN. BELONGINGS WERE WITH PT.
[2020-05-24] MEDS ORDERED: DOCUZEN 8.6-501 EACH PO (16:38)
[2020-05-24] MEDS ORDERED: HYDR10 PO (16:39)
[2020-05-24] MEDS ORDERED: HYDRA25 PO (16:39)
[2020-05-24] MEDS ORDERED: TRAM50 PO (16:40)
== END 2020-05-24 15:15 | DRG 65 ==
LOC: ER 15:37 → PCU 19:22 → MEDS 05-20 18:43 → ENPENDDIS 05-24 12:21 → EDPENDDIS 05-24 12:21 → MEDS 05-24 15:15
PROVIDERS: Emergency Medicine; Internal Medicine; ADMIT Internal Medicine
DX: I63.9 Cerebral infarction, unspecified (principal); N18.4 Chronic kidney disease, stage 4 (severe); G81.91 Hemiplegia, unspecified affecting right dominant side; R29.810 Facial weakness; R47.81 Slurred speech; I12.9 Hypertensive chronic kidney disease with stage 1 through stage 4 chronic kidney disease, or unspecified chronic kidney disease; Z20.822 Contact with and (suspected) exposure to COVID-19; E03.9 Hypothyroidism, unspecified; E78.5 Hyperlipidemia, unspecified; I73.9 Peripheral vascular disease, unspecified; F10.20 Alcohol dependence, uncomplicated; F31.9 Bipolar disorder, unspecified; I35.0 Nonrheumatic aortic (valve) stenosis; J44.9 Chronic obstructive pulmonary disease, unspecified; M54.9 Dorsalgia, unspecified; Z87.891 Personal history of nicotine dependence; Z79.899 Other long term (current) drug therapy; K80.20 Calculus of gallbladder without cholecystitis without obstruction; Z86.73 Personal history of transient ischemic attack (TIA), and cerebral infarction without residual deficits; Z95.5 Presence of coronary angioplasty implant and graft
CPT/HCPCS: 0241U; 36415; 70450; 71045; 74176; 76775; 80048; 80053; 81001; 82140; 82947; 84436; 84443; 84484; 85025; 85027; 85610; 85730; 92526; 92610; 93005; 93010; 93880; 94760; 97110; 97116; 97163; 97165; 97530; 97535; 99285-25; A9270; G0480; J1644; J7030

== ENCOUNTER 2020-06-02 07:22 | Inpatient (IN) | payer MEDICARE, OTHER ==
[~2020-06-02] VITALS: Ht 154.9 cm; Wt 61.7 kg
[~2020-06-02 07:22] MED LIST changes: +DOCUZEN 8.6-501 EACH PO; +HYDR10 PO; +HYDRA25 PO; +TRAM50 PO
[2020-06-02] MEDS ORDERED: OYSTER SHELL 51 EACH PO (08:02)
[2020-06-02] MEDS ORDERED: FURO20 PO (08:03)
[2020-06-02] MEDS ORDERED: NICO21TP TOP ×2 (08:03→19:20)
[2020-06-02] MEDS ORDERED: NIFE90ER PO (08:05)
[2020-06-02] MEDS ORDERED: LORA.5 PO (08:07)
[2020-06-02] MEDS ORDERED: LEVFLO500 PO (08:08)
[2020-06-02] MEDS ORDERED: LEVAQUIN750 MG PO (08:09)
[2020-06-02 08:30] LABS: BASOPHILS ABSOLUTE AUTO 0.03 K/mm3 (0.00-0.23); BASOPHILS PERCENT AUTO 0 % (0-2); EOSINOPHILS PERCENT AUTO 0 % (0-6); Hematocrit 28.5 % (33.0-51.0); IMMATURE GRAN ABSOLUTE AUTO 0.18 K/mm3 (0.00-0.10); IMMATURE GRAN PERCENT AUTO 1 % (0-1); LYMPHOCYTES ABSOLUTE AUTO 0.73 K/mm3 (0.84-5.20); LYMPHOCYTES PERCENT AUTO 6 % (21-46); MONOCYTES ABSOLUTE AUTO 0.72 K/mm3 (0.16-1.47); MONOCYTES PERCENT AUTO 6 % (4-13); Mean Corpuscular HGB 31.8 pg (26.0-34.0); Mean Corpuscular HGB Conc 31.6 g/dL (31.5-36.5); Mean Corpuscular Volume 101 fL (80-100); Mean Platelet Volume 12.7 fL (9.1-12.4); NEUTROPHILS ABSOLUTE AUTO 11.54 K/mm3 (1.96-9.15); NEUTROPHILS PERCENT AUTO 87 % (41-73); Platelet Count 196 K/mm3 (150-400); RDW Coefficient Variation 15.8 % (11.7-14.2); RDW Standard Deviation 58.4 fL (35.1-46.3); Red Blood Cell Count 2.83 M/mm3 (3.80-5.20)
[2020-06-02 08:36] LABS: Troponin I 0.136 ng/mL (0.000-0.040)
[2020-06-02 09:00] LABS: Albumin, Blood 2.3 g/dL (3.4-5.0); Albumin/Globulin Ratio 0.4 (0.8-1.8); Bilirubin, Total 0.3 mg/dL (0.1-1.0); Bun/Creatinine Ratio 30.4 (12.0-20.0); Creatinine, Blood 2.53 mg/dL (0.40-1.00); Globulin, Blood 5.2 g/dL (2.2-4.0); Potassium, Blood 6.1 mmol/L (3.5-5.5); Total Protein, Blood 7.5 g/dL (6.4-8.2)
[2020-06-02] MEDS ORDERED: TOPI25 PO (11:46)
[2020-06-02] MEDS ORDERED: ADALAT CC30 MG PO (11:51)
[2020-06-02] MEDS ORDERED: LEVSOD100 PO (11:52)
[2020-06-02 14:28] LABS: Base Excess Venous -11.6 mmol/L; Bicarbonate Venous 15.7 mmol/L (24.0-30.0); PCO2 Venous 45.6 mmHg (38-42); PO2 Venous 120 mmHg (38-42)
[2020-06-02 14:29] LABS: pH Blood Venous 7.18 (7.34-7.37)
[2020-06-02 15:25] LABS: Percent Saturation 21.2 % (15.0-50.0)
[2020-06-02 16:35] LABS: Hematocrit 27.9 % (33.0-51.0); Hemoglobin 8.4 g/dL (11.5-16.0)
--- NOTE | 2020-06-02 19:11 | NUR ---
PATIENT ARRIVED TO UNIT, VSS. PATIENT SHOWS NO SIGNS OF ACUTE DISTRESS, CALL LIGHT WITHIN REACH, BED IN LOW POSITION, WCTM.
[2020-06-02] MEDS ORDERED: CARDURA2 MG PO (19:19)
[2020-06-02] MEDS ORDERED: HYDRA25 PO (19:29)
[2020-06-02] MEDS ORDERED: HYDR10 PO (19:30)
[2020-06-02] MEDS ORDERED: LEVOFLOXACIN750 MG PO (19:31)
[2020-06-02 22:17] LABS: Hematocrit 26.3 % (33.0-51.0); Hemoglobin 8.3 g/dL (11.5-16.0)
[2020-06-03 02:25] LABS: Source, Urine Catheter
[2020-06-03 02:27] LABS: Bilirubin, Urine Neg (Neg); Blood, Urine Neg (Neg); Glucose Qualitative, Urine Neg (Neg); Ketones, Urine Neg (Neg); Leukocyte Esterase, Urine 1+ (Neg); Nitrite, Urine Neg (Neg); Protein, Urine 3+ (Neg); Urobilinogen, Urine NORM (Normal)
[2020-06-03 02:58] LABS: Appearance, Urine Clear (Clear); Color, Urine Pale Yellow (P-Yellow)
[2020-06-03 02:59] LABS: Amorphous Light (0-Heavy); Bacteria Not Seen /hpf; Red Blood Cells, Urine Not Seen /hpf (0-2); Squamous Epithelial Cells Not Seen /hpf (Few)
[2020-06-03 04:43] LABS: BASOPHILS ABSOLUTE AUTO 0.02 K/mm3 (0.00-0.23); BASOPHILS PERCENT AUTO 0 % (0-2); EOSINOPHILS ABSOLUTE AUTO 0.04 K/mm3 (0.00-0.68); EOSINOPHILS PERCENT AUTO 0 % (0-6); Hematocrit 25.5 % (33.0-51.0); Hemoglobin 7.9 g/dL (11.5-16.0); IMMATURE GRAN ABSOLUTE AUTO 0.16 K/mm3 (0.00-0.10); IMMATURE GRAN PERCENT AUTO 2 % (0-1); LYMPHOCYTES ABSOLUTE AUTO 0.96 K/mm3 (0.84-5.20); LYMPHOCYTES PERCENT AUTO 10 % (21-46); MONOCYTES PERCENT AUTO 8 % (4-13); Mean Corpuscular HGB 31.1 pg (26.0-34.0); Mean Corpuscular Volume 100 fL (80-100); NEUTROPHILS ABSOLUTE AUTO 7.49 K/mm3 (1.96-9.15); NEUTROPHILS PERCENT AUTO 80 % (41-73); Platelet Count 220 K/mm3 (150-400); RDW Coefficient Variation 15.8 % (11.7-14.2); RDW Standard Deviation 58.7 fL (35.1-46.3); Red Blood Cell Count 2.54 M/mm3 (3.80-5.20); White Blood Cell Count 9.37 K/mm3 (4.00-11.30)
[2020-06-03 05:18] LABS: Albumin, Blood 1.9 g/dL (3.4-5.0); Albumin/Globulin Ratio 0.4 (0.8-1.8); Bilirubin, Total 0.3 mg/dL (0.1-1.0); Calcium, Blood 7.7 mg/dL (8.5-10.1); Creatinine, Blood 2.62 mg/dL (0.40-1.00); Globulin, Blood 4.3 g/dL (2.2-4.0); Potassium, Blood 4.3 mmol/L (3.5-5.5); Total Protein, Blood 6.2 g/dL (6.4-8.2)
--- NOTE | 2020-06-03 06:15 | NUR ---
SHIFT SUMMARY PT WAS A NEW ADMIT AT THE START OF SHIFT IN STABLE CONDTION. PT WAS A BIT LETHARGIC AT START OF SHIFT BECOMING MORE ALERT BY AM. PT WAS AAOX3, ABLE TO ANSWER MOST QUESTIONS APPROPRIATELY, CONFUSED ABOUT TIME OF DAY AND PT RAMBLES ABOUT VARIOUS TOPICS UNRELATED TO THE QUESTION ASKED. DISCUSSED WITH PT AT START OF SHIFT ABOUT RESUSCITATION WISHES AND PT STATED SHE WOULD LIKE TO HAVE CPR AND STATED "IF I AM , LEAVE ME . DONT DO MAGIC TO BRING ME BACK. BUT YES, CPR" PT HAS A SIGNED POLST DATED 05/26 THAT STATES DNR. I DISCUSSED THIS WITH THE PT AND I WOULD RECOMMEND FURTHER DISCUSSION THIS AM WHEN PT IS MORE AWAKE. OTHERWISE, VITALS STABLE. BP 114-136 SYSTOLIC. HR 90-100'S. O2 SATS 90'S ON 3LPM VIA NC. PT STATED DISCOMFORT HAVING TO VOID BUT UNABLE TO VOID. BLADDER SCAN SHOWED >999ML, LOPEZ PLACED AND 1200ML DRAINED. MEPILEX PLACED ON OPEN STAGE 2 PRESSURE ULCER ON COCCYX, PICTURES IN CHART. HGB TRENDING DOWN, 7.9 ON AM LABS. PT AWAKE IN ROOM.
--- NOTE | 2020-06-03 18:35 | NUR ---
NO ACUTE EVENTS THIS SHIFT, VSS. PATIENT UP WITH WALKER AND X1 ASSIST TO BEDSIDE COMMODE. PATIENT ALERT AND ORIENTED, COOPERATIVE WITH CARE. PATIENT HAD COUGHING EPISODE, RESOLVED WITH DEEP BREATHING. REPORT GIVEN TO DREW TANNER ON MEDICAL.
--- NOTE | 2020-06-04 04:35 | NUR ---
SHIFT SUMMARY ASSUMED CARE OF PT AT 1900. PT IS A/OX4 BUT HAS HIGH ANXIETY. FOR EXAMPLE, PT HAD TO HAVE DOOR OPEN AND WOULD WAKE UP ASKING FOR HELP BUT THEN WOULD BE BACK ASLEEP WHEN SOMEONE ENTERED THE ROOM. HEART SOUNDS REGULAR, LUNG SOUNDS ARE TIGHT AND DIMINISHED WITH FINE CRACKLES AT THE BASES, PT WAS ON 3L NC. PT WAS CONTINENT DURING THE NIGHT. PT SLEPT T/O THE NIGHT. CALL LIGHT IN REACH, BED IN LOWEST POSTITION.
[2020-06-04 05:07] LABS: Hematocrit 26.7 % (33.0-51.0); Hemoglobin 8.3 g/dL (11.5-16.0); Mean Corpuscular HGB 31.4 pg (26.0-34.0); Mean Corpuscular HGB Conc 31.1 g/dL (31.5-36.5); Mean Corpuscular Volume 101 fL (80-100); Mean Platelet Volume 11.8 fL (9.1-12.4); Platelet Count 252 K/mm3 (150-400); RDW Standard Deviation 59.7 fL (35.1-46.3); Red Blood Cell Count 2.64 M/mm3 (3.80-5.20); White Blood Cell Count 8.91 K/mm3 (4.00-11.30)
[2020-06-04 05:36] LABS: Bun/Creatinine Ratio 29.2 (12.0-20.0); Calcium, Blood 7.6 mg/dL (8.5-10.1); Creatinine, Blood 2.64 mg/dL (0.40-1.00); Potassium, Blood 4.7 mmol/L (3.5-5.5)
--- NOTE | 2020-06-04 18:32 | NUR ---
PATIENT IS ALERT AND ORIENTED WITH OCCASIONAL FOGETFULLNESS. THE PATIENT'S VISITED HER AT THE BEDSIDE TODAY. NO COMPLAINTS OF PAIN. ON 3L O2 VIA NC. PATIENT PARTICIPATED WITH PT TODAY. SHE'S HAD TWO LOOSE STOOLS TODAY, NO VISIBLE BLOOD. LOPEZ IS PATENT AND DRAINING. WOUND ON BUTTOCKS, PICTURES IS CHART. WILL CONTINUE TO MONITOR
[2020-06-05 04:39] LABS: Hematocrit 26.2 % (33.0-51.0); Mean Corpuscular HGB 31.3 pg (26.0-34.0); Mean Corpuscular HGB Conc 30.5 g/dL (31.5-36.5); Mean Corpuscular Volume 102 fL (80-100); Mean Platelet Volume 11.3 fL (9.1-12.4); Platelet Count 262 K/mm3 (150-400); RDW Coefficient Variation 16.1 % (11.7-14.2); RDW Standard Deviation 61.6 fL (35.1-46.3); Red Blood Cell Count 2.56 M/mm3 (3.80-5.20); White Blood Cell Count 9.12 K/mm3 (4.00-11.30)
[2020-06-05 04:57] LABS: Bun/Creatinine Ratio 28.1 (12.0-20.0); Creatinine, Blood 2.31 mg/dL (0.40-1.00); Potassium, Blood 4.8 mmol/L (3.5-5.5)
--- NOTE | 2020-06-05 06:01 | NUR ---
SHIFT SUMMARY THIS RN TOOK CHARGE OF THIS PATIENT AROUND 0200. SINCE THEN, THE PATIENT HAS BEEN SLEEPING AND HAS HAD NO COMPLAINTS OF PAIN OR SHORTNESS OF BREATH. SHE REMAINS ON 3 LITERS O2 VIA NASAL CANULA. BED IN LOWEST POSITION WITH WHEELS LOCKED AND ALARM ON. CALL LIGHT WITHIN REACH. REPORT GIVEN TO ONCOMING RN.
--- NOTE | 2020-06-05 16:11 | NUR ---
DR. DIAZ NOTIFIED OF WOUND TO L POSTERIOR SHOULDER WITH SLOUGH IN WOUND BED, REQUESTED ORDER FOR SANTYL, PHARMACY NOTIFIED THIS RN THAT SANTYL IS NO LONGER IN OUR FORMULARY. ORDER FOR DAILY DRESSING CHANGES PLACED.
--- NOTE | 2020-06-05 17:57 | NUR ---
SHIFT SUMMARY PT IS A&O X3. PT IS A 1 PERSON TRANSFER WITH FWW. SHE HAS A PRODUCTIVE COUGH WITH MOVEMENT. PT HAS STATED FEELING DEPRESSED AND WISH SHE WAS HOME. PICTURES TAKEN AND WOUND CLEAND ON LEFT POSTERIOR SHOULDER. PT TOLERATED THE CLEANING WELL. PT HAS REMAINED ON 3L OF OXYGEN THIS SHIFT, BECOMES SOB WITH EXERCTION. SHE IS CURENLTY EATING DINNER WITH CALL LIGHT NEXT TO HER.
[2020-06-06 04:50] LABS: Hematocrit 25.5 % (33.0-51.0); Hemoglobin 7.7 g/dL (11.5-16.0); Mean Corpuscular HGB 31.3 pg (26.0-34.0); Mean Corpuscular HGB Conc 30.2 g/dL (31.5-36.5); Mean Corpuscular Volume 104 fL (80-100); Mean Platelet Volume 11.5 fL (9.1-12.4); Platelet Count 264 K/mm3 (150-400); RDW Standard Deviation 61.1 fL (35.1-46.3); Red Blood Cell Count 2.46 M/mm3 (3.80-5.20); White Blood Cell Count 11.66 K/mm3 (4.00-11.30)
[2020-06-06 05:13] LABS: Bun/Creatinine Ratio 26.8 (12.0-20.0); Calcium, Blood 8.4 mg/dL (8.5-10.1); Creatinine, Blood 2.05 mg/dL (0.40-1.00); Potassium, Blood 5.3 mmol/L (3.5-5.5)
--- NOTE | 2020-06-06 05:22 | NUR ---
06/06/20 0500 SLEEPING WELL THIS SHIFT. VITALS STABLE AND CALLS WHEN NEEDING CARE. REPOSITIONED SIDE TO SIDE TO AVOID LYING ON BACK. LOPEZ PATENT/DRAINING WELL. O2 REMAINS ON 3LPM VIA N/C. SLIGHT SOB WITH ACTIVITY OR TALKING.
--- NOTE | 2020-06-07 05:45 | NUR ---
06/07/20 0450 O2 SAT WAS ONLY 88-90% ON ROOM AIR DURING ROUTINE VITALS CHECK. SLIGHT SOB NOTED. O2 AT 2LPM VIA N/C APPLIED. O2 SAT NOW AT 94% and pt DENIES ANY S/S OR DISOMCORT. PT STATED SHE SLEPT ON AND OFF LAST NIGHT. PT REMINDED THAT SHE WILL ONLY BE ON WATER AND ICE CHIPS AFTER 6 AM FOR PROCEDURE THIS AFTERNOON. SHE AGREES.
--- NOTE | 2020-06-07 15:01 | NUR ---
06/07/20 1501 Mono León See Anesthesia record PER DR JEFFERSON. Bite Block Placed Patient to ENDO 1History, Chart, Medications and Allergies reviewed before start of procedure.MONITOR INTACT WITH CONTINUOUS PULSE OXIMETRY AND INTERMITTENT BP.O2 VIA N/C INTACT THROUGHOUT SEDATION/PROCEDURE.
--- NOTE | 2020-06-07 17:36 | NUR ---
SHIFT SUMMARY PATIENT ALERT, ORIENTED X3 THIS SHIFT. PATIENT NPO EXCEPT FOR WATER THIS AM FOR ENDOSCOPY. PATIENT EXPERIENCED AN EPISODE OF SEVERE COUGHING WITH LARGE AMOUNTS OF THICK MUCUS THIS AM. PATIENT RETURNED TO 2L O2 AT THIS TIME TO MAINTAIN OXYGEN > 90. PATIENT RETURNED TO ROOM AIR SHORTLY AFTER AND HAS TOLERATED WELL. PATIENT DOWN TO PROCEDURE EARLY THIS AFTERNOON. PATIENT BACK FROM PROCEDURE LATE AFTERNOON. VS WITHIN NORMAL LIMITS AFTER PROCEDURE. PATIENT LAYING IN BED SINCE RETURNING.
[2020-06-08 04:40] LABS: Hematocrit 27.6 % (33.0-51.0); Hemoglobin 8.4 g/dL (11.5-16.0); Mean Corpuscular HGB Conc 30.4 g/dL (31.5-36.5); Mean Corpuscular Volume 102 fL (80-100); Mean Platelet Volume 11.1 fL (9.1-12.4); Platelet Count 280 K/mm3 (150-400); RDW Coefficient Variation 15.8 % (11.7-14.2); RDW Standard Deviation 58.6 fL (35.1-46.3); Red Blood Cell Count 2.71 M/mm3 (3.80-5.20); White Blood Cell Count 12.98 K/mm3 (4.00-11.30)
[2020-06-08 05:04] LABS: Bun/Creatinine Ratio 21.2 (12.0-20.0); Calcium, Blood 9.2 mg/dL (8.5-10.1); Creatinine, Blood 2.12 mg/dL (0.40-1.00); Potassium, Blood 5.2 mmol/L (3.5-5.5)
--- NOTE | 2020-06-08 07:34 | NUR ---
06/08/20 0610 AWAKENED FOR AM MEDS. SLEPT WELL AND POST-PROCEDURE VITALS STABLE. LOPEZ FOR RETENTION DRAINING CLEAR, YELLOW URINE. PT ON ROOM AIR ALL NIGHT WITHOUT DISTRESS. PT HOPING TO GO HOME TODAY.
--- NOTE | 2020-06-08 11:51 | NUR ---
Met pt. lying in bed resting ,pt. reports to be doing well ans may go home today encouraged pt. and prayed for her.
[2020-06-08] MEDS ORDERED: PANT40 PO (13:13)
[2020-06-08] MEDS ORDERED: CEFD300 (13:15)
[2020-06-08 14:31] LABS: Influenza A, PCR NEGATIVE (NEGATIVE); Influenza B, PCR NEGATIVE (NEGATIVE); Resp Syncytial Virus, PCR NEGATIVE (NEGATIVE); SARS-Cov-2 (COVID-19) PCR, MMC NEGATIVE (NEGATIVE)
--- NOTE | 2020-06-08 16:00 | NUR ---
DISCHARGED TO [facility]. UPSET ABOUT NOT BEING ABLE TO GO HOME DUE TO NEEDING FOLLOWUP REHAB. CAREGIVER NOTIFIED BY CAREMANAGER. REPORT CALLED TO [facility]. PT ABLE TO TRANSFER WITH 1 PERSON ASSIST TO W/C FOR DISCHARGE. HAS DENIED ANY ABDOMENAL PAIN AND HAS TOLERATED MEALS TODAY. DR. STRATTON IN TO SEE PT JUST PRIOR TO LEAVING. TO [facility] VIA W/C.
== END 2020-06-08 15:34 | DRG 871 ==
LOC: ER 07:22 → ERHOLD 13:14 → PCU 13:14 → MEDS 13:14 → PCU 18:20 → MEDS 06-03 19:04
PROVIDERS: Emergency Medicine; Internal Medicine; Internal Medicine Gastroenterology; Nurse Practitioner Acute Care; ADMIT Internal Medicine
PROC: 3E02340 Introduction of Influenza Vaccine into Muscle, Percutaneous Approach (ICD-10-PCS; 2020-06-02)
PROC: 0DB48ZX Excision of Esophagogastric Junction, Via Natural or Artificial Opening Endoscopic, Diagnostic (ICD-10-PCS; principal; 2020-06-07 07:30)
PROC: 0DB68ZX Excision of Stomach, Via Natural or Artificial Opening Endoscopic, Diagnostic (ICD-10-PCS; 2020-06-07 07:30)
DX: A41.9 Sepsis, unspecified organism (principal); I50.33 Acute on chronic diastolic (congestive) heart failure; J96.21 Acute and chronic respiratory failure with hypoxia; J96.22 Acute and chronic respiratory failure with hypercapnia; J18.9 Pneumonia, unspecified organism; K29.81 Duodenitis with bleeding; K25.4 Chronic or unspecified gastric ulcer with hemorrhage; N17.9 Acute kidney failure, unspecified; N18.4 Chronic kidney disease, stage 4 (severe); J44.0 Chronic obstructive pulmonary disease with (acute) lower respiratory infection; Z66 Do not resuscitate; Z23 Encounter for immunization; R65.20 Severe sepsis without septic shock; Z96.652 Presence of left artificial knee joint; F31.9 Bipolar disorder, unspecified; I35.0 Nonrheumatic aortic (valve) stenosis; Z86.73 Personal history of transient ischemic attack (TIA), and cerebral infarction without residual deficits; I73.9 Peripheral vascular disease, unspecified; Z79.82 Long term (current) use of aspirin; Z87.891 Personal history of nicotine dependence; Z79.01 Long term (current) use of anticoagulants; Z88.0 Allergy status to penicillin; E87.5 Hyperkalemia; I12.9 Hypertensive chronic kidney disease with stage 1 through stage 4 chronic kidney disease, or unspecified chronic kidney disease; I27.20 Pulmonary hypertension, unspecified; E03.9 Hypothyroidism, unspecified; I34.0 Nonrheumatic mitral (valve) insufficiency; K22.70 Barrett's esophagus without dysplasia
CPT/HCPCS: 0241U; 36415; 51702; 71045; 80048; 80053; 81001; 82607; 82728; 82746; 82803; 83540; 83550; 83605; 83735; 83880; 84100; 84132; 84145; 84484; 85014; 85018; 85025; 85027; 87040; 88305; 88342; 93005; 93010; 93306; 94640; 94760; 96365; 96367; 96375; 97110; 97116; 97162; 97166; 97530; 97535; 99285-25; A9270; G0008; J0456; J0610; J0696; J1815; J1940; J2704; J7050; J7120; Q2038

== ENCOUNTER 2020-08-03 22:29 | Inpatient (IN) | payer MEDICARE, OTHER ==
[~2020-08-03] VITALS: Ht 160 cm; Wt 77.1 kg
[~2020-08-03 22:29] MED LIST changes: +ADALAT CC30 MG PO; +ALBU90OI INH; +ATORVASTATIN CA20 MG PO; +CARDURA2 MG PO; +CEFD300; +LEVAQUIN750 MG PO; +LEVFLO500 PO; +LEVOFLOXACIN750 MG PO; +LEVSOD88 PO; +LORA.5 PO; +METO50ER PO; +NIFE90ER PO; +OYSTER SHELL 51 EACH PO; +PANT40 PO; +QUETIAPINE FUMA50 M4 PO; +Zyloprim100 MG PO
[2020-08-03 23:01] LABS: BASOPHILS ABSOLUTE AUTO 0.04 K/mm3 (0.00-0.23); BASOPHILS PERCENT AUTO 0 % (0-2); EOSINOPHILS ABSOLUTE AUTO 0.01 K/mm3 (0.00-0.68); EOSINOPHILS PERCENT AUTO 0 % (0-6); IMMATURE GRAN ABSOLUTE AUTO 0.79 K/mm3 (0.00-0.10); IMMATURE GRAN PERCENT AUTO 3 % (0-1); LYMPHOCYTES ABSOLUTE AUTO 2.29 K/mm3 (0.84-5.20); LYMPHOCYTES PERCENT AUTO 8 % (21-46); MONOCYTES ABSOLUTE AUTO 1.12 K/mm3 (0.16-1.47); MONOCYTES PERCENT AUTO 4 % (4-13); Mean Corpuscular HGB 31.5 pg (26.0-34.0); Mean Corpuscular HGB Conc 31.9 g/dL (31.5-36.5); Mean Corpuscular Volume 99 fL (80-100); Mean Platelet Volume 11.8 fL (9.1-12.4); NEUTROPHILS PERCENT AUTO 85 % (41-73); NRBC ABSOLUTE 0.26 K/mm3 (0.00-0.02); NRBC Auto 0.9 /100 WBC (0.0-0.2); Platelet Count 362 K/mm3 (150-400); RDW Coefficient Variation 18.4 % (11.7-14.2); RDW Standard Deviation 62.2 fL (35.1-46.3); Red Blood Cell Count 1.46 M/mm3 (3.80-5.20); White Blood Cell Count 28.15 K/mm3 (4.00-11.30)
[2020-08-03 23:03] LABS: Hematocrit 14.4 % (33.0-51.0); Hemoglobin 4.6 g/dL (11.5-16.0)
[2020-08-03 23:18] LABS: International Normalized Ratio 1.13
[2020-08-03 23:25] LABS: Acetaminophen, Random 4.1 ug/mL (10.0-30.0); Alanine Aminotransfer (ALT/SGP 26 U/L (12-78); Albumin, Blood 1.9 g/dL (3.4-5.0); Albumin/Globulin Ratio 0.6 (0.8-1.8); Alk Phos 75 U/L (50-136); Anion Gap 19 mmol/L (6-16); Aspartate Aminotrans (AST/SGOT 35 U/L (12-37); Bilirubin, Total 0.3 mg/dL (0.1-1.0); Blood Urea Nitrogen 93 mg/dL (8-24); CO2, Blood 14 mmol/L (21-32); Calcium, Blood 7.7 mg/dL (8.5-10.1); Chloride, Blood 98 mmol/L (98-108); Creatinine, Blood 1.98 mg/dL (0.40-1.00); Ethanol (Alcohol), Blood, Med <3 mg/dL; Glomerular Filtration Rate 26 (60-); Glucose, Blood 108 mg/dL (70-99); Potassium, Blood 5.9 mmol/L (3.5-5.5); Salicylate <1.7 mg/dL (2.8-20.0); Sodium, Blood 131 mmol/L (136-145); Total Protein, Blood 4.9 g/dL (6.4-8.2); Troponin I 0.044 ng/mL (0.000-0.040)
[2020-08-03 23:47] LABS: Base Excess Venous -19.7 mmol/L; Bicarbonate Venous 10.2 mmol/L (24.0-30.0); PCO2 Venous 43.9 mmHg (38-42); PO2 Venous 43.8 mmHg (38-42); pH Blood Venous 7.02 (7.34-7.37)
[2020-08-04 00:40] LABS: Source, Urine Catheter
[2020-08-04 00:43] LABS: Appearance, Urine Cloudy (Clear); Bilirubin, Urine Neg (Neg); Blood, Urine 3+ (Neg); Color, Urine Yellow (P-Yellow); Glucose Qualitative, Urine Neg (Neg); Ketones, Urine Neg (Neg); Leukocyte Esterase, Urine 3+ (Neg); Nitrite, Urine Neg (Neg); Protein, Urine 3+ (Neg); Specific Gravity, Urine 1.015 (1.003-1.022); Urobilinogen, Urine NORM (Normal)
[2020-08-04 00:49] LABS: White Blood Cells, Urine TNTC /hpf (0-5)
[2020-08-04 00:50] LABS: Bacteria Many /hpf; Red Blood Cells, Urine 0-2 /hpf (0-2); Squamous Epithelial Cells Few /hpf (Few)
[2020-08-04 00:54] LABS: U Amphetamine Screen Not Detected; U Barbituate Screen Not Detected; U Benzodiazapine Screen Not Detected; U Buprenorphine Screen Not Detected; U Cannabinoids Screen Not Detected; U Cocaine Screen Not Detected; U Methadone Screen Not Detected; U Methamphetamine Screen Not Detected; U Opiates Screen Not Detected; U Oxycodone Screen Not Detected; U Phencyclidine Screen Not Detected; U Propoxyphene Screen Not Detected
[2020-08-04 01:08] LABS: Influenza A, PCR NEGATIVE (NEGATIVE); Influenza B, PCR NEGATIVE (NEGATIVE); Resp Syncytial Virus, PCR NEGATIVE (NEGATIVE); SARS-Cov-2 (COVID-19) PCR, MMC NEGATIVE (NEGATIVE)
[2020-08-04 04:16] LABS: PO2 Arterial 140 mmHg (80-100); pH Blood Arterial 7.37 (7.35-7.45)
[2020-08-04 06:58] LABS: BASOPHILS ABSOLUTE AUTO 0.05 K/mm3 (0.00-0.23); BASOPHILS PERCENT AUTO 0 % (0-2); EOSINOPHILS ABSOLUTE AUTO 0.01 K/mm3 (0.00-0.68); EOSINOPHILS PERCENT AUTO 0 % (0-6); Hematocrit 20.4 % (33.0-51.0); Hemoglobin 7.3 g/dL (11.5-16.0); IMMATURE GRAN ABSOLUTE AUTO 0.22 K/mm3 (0.00-0.10); IMMATURE GRAN PERCENT AUTO 1 % (0-1); LYMPHOCYTES ABSOLUTE AUTO 2.98 K/mm3 (0.84-5.20); LYMPHOCYTES PERCENT AUTO 12 % (21-46); MONOCYTES ABSOLUTE AUTO 0.59 K/mm3 (0.16-1.47); MONOCYTES PERCENT AUTO 2 % (4-13); Mean Corpuscular HGB 31.5 pg (26.0-34.0); Mean Corpuscular HGB Conc 35.8 g/dL (31.5-36.5); Mean Platelet Volume 11.2 fL (9.1-12.4); NEUTROPHILS ABSOLUTE AUTO 21.06 K/mm3 (1.96-9.15); NEUTROPHILS PERCENT AUTO 85 % (41-73); NRBC ABSOLUTE 0.07 K/mm3 (0.00-0.02); NRBC Auto 0.3 /100 WBC (0.0-0.2); Platelet Count 206 K/mm3 (150-400); RDW Coefficient Variation 15.9 % (11.7-14.2); RDW Standard Deviation 49.2 fL (35.1-46.3); Red Blood Cell Count 2.32 M/mm3 (3.80-5.20); White Blood Cell Count 24.91 K/mm3 (4.00-11.30)
[2020-08-04 07:11] LABS: Mean Corpuscular Volume 88 fL (80-100)
[2020-08-04 07:18] LABS: CPK Creatine Kinase 58 U/L (26-193)
[2020-08-04 07:25] LABS: Albumin, Blood 2.4 g/dL (3.4-5.0); Bilirubin, Total 0.4 mg/dL (0.1-1.0); Bun/Creatinine Ratio 45.7 (12.0-20.0); Calcium, Blood 7.1 mg/dL (8.5-10.1); Creatinine, Blood 1.99 mg/dL (0.40-1.00); Globulin, Blood 2.4 g/dL (2.2-4.0); Potassium, Blood 4.3 mmol/L (3.5-5.5); Total Protein, Blood 4.8 g/dL (6.4-8.2)
[2020-08-04 12:37] LABS: Hematocrit 19.9 % (33.0-51.0)
[2020-08-04 15:52] LABS: CPK Creatine Kinase 69 U/L (26-193)
[2020-08-04 19:34] LABS: Hemoglobin 6.8 g/dL (11.5-16.0)
[2020-08-05 02:30] LABS: BASOPHILS ABSOLUTE AUTO 0.06 K/mm3 (0.00-0.23); BASOPHILS PERCENT AUTO 0 % (0-2); EOSINOPHILS ABSOLUTE AUTO 0.34 K/mm3 (0.00-0.68); EOSINOPHILS PERCENT AUTO 2 % (0-6); Hematocrit 23.3 % (33.0-51.0); IMMATURE GRAN PERCENT AUTO 1 % (0-1); LYMPHOCYTES ABSOLUTE AUTO 3.09 K/mm3 (0.84-5.20); LYMPHOCYTES PERCENT AUTO 17 % (21-46); MONOCYTES ABSOLUTE AUTO 0.62 K/mm3 (0.16-1.47); MONOCYTES PERCENT AUTO 3 % (4-13); Mean Corpuscular HGB 30.8 pg (26.0-34.0); Mean Corpuscular HGB Conc 34.3 g/dL (31.5-36.5); Mean Corpuscular Volume 90 fL (80-100); Mean Platelet Volume 10.6 fL (9.1-12.4); NEUTROPHILS ABSOLUTE AUTO 14.41 K/mm3 (1.96-9.15); NEUTROPHILS PERCENT AUTO 77 % (41-73); NRBC ABSOLUTE 0.08 K/mm3 (0.00-0.02); NRBC Auto 0.4 /100 WBC (0.0-0.2); Platelet Count 225 K/mm3 (150-400); RDW Standard Deviation 52.3 fL (35.1-46.3); White Blood Cell Count 18.72 K/mm3 (4.00-11.30)
[2020-08-05 02:48] LABS: Albumin, Blood 2.2 g/dL (3.4-5.0); Bilirubin, Total 0.4 mg/dL (0.1-1.0); Bun/Creatinine Ratio 39.8 (12.0-20.0); Calcium, Blood 6.9 mg/dL (8.5-10.1); Creatinine, Blood 2.31 mg/dL (0.40-1.00); Globulin, Blood 2.3 g/dL (2.2-4.0); Potassium, Blood 4.3 mmol/L (3.5-5.5); Total Protein, Blood 4.5 g/dL (6.4-8.2)
[2020-08-05 02:54] LABS: International Normalized Ratio 1.01; Prothrombin Time Results 10.8 Sec (9.7-11.5)
[2020-08-05 04:08] LABS: PCO2 Arterial 34.3 mmHg (35-45); PO2 Arterial 78.8 mmHg (80-100); pH Blood Arterial 7.43 (7.35-7.45)
[2020-08-05 13:02] LABS: Hematocrit 23.4 % (33.0-51.0); Hemoglobin 7.8 g/dL (11.5-16.0)
[2020-08-05 20:56] LABS: Hematocrit 22.8 % (33.0-51.0); Hemoglobin 7.6 g/dL (11.5-16.0)
[2020-08-06 03:48] LABS: BASOPHILS ABSOLUTE AUTO 0.03 K/mm3 (0.00-0.23); BASOPHILS PERCENT AUTO 0 % (0-2); EOSINOPHILS ABSOLUTE AUTO 0.27 K/mm3 (0.00-0.68); EOSINOPHILS PERCENT AUTO 3 % (0-6); Hematocrit 25.2 % (33.0-51.0); Hemoglobin 8.2 g/dL (11.5-16.0); IMMATURE GRAN ABSOLUTE AUTO 0.08 K/mm3 (0.00-0.10); IMMATURE GRAN PERCENT AUTO 1 % (0-1); LYMPHOCYTES PERCENT AUTO 21 % (21-46); MONOCYTES ABSOLUTE AUTO 0.35 K/mm3 (0.16-1.47); MONOCYTES PERCENT AUTO 4 % (4-13); Mean Corpuscular HGB 30.8 pg (26.0-34.0); Mean Corpuscular HGB Conc 32.5 g/dL (31.5-36.5); Mean Corpuscular Volume 95 fL (80-100); Mean Platelet Volume 10.7 fL (9.1-12.4); NEUTROPHILS ABSOLUTE AUTO 6.06 K/mm3 (1.96-9.15); NEUTROPHILS PERCENT AUTO 71 % (41-73); NRBC ABSOLUTE 0.02 K/mm3 (0.00-0.02); NRBC Auto 0.2 /100 WBC (0.0-0.2); Platelet Count 168 K/mm3 (150-400); RDW Standard Deviation 57.6 fL (35.1-46.3); Red Blood Cell Count 2.66 M/mm3 (3.80-5.20); White Blood Cell Count 8.59 K/mm3 (4.00-11.30)
[2020-08-06 04:08] LABS: Albumin, Blood 2.1 g/dL (3.4-5.0); Albumin/Globulin Ratio 0.8 (0.8-1.8); Bilirubin, Total 0.3 mg/dL (0.1-1.0); Bun/Creatinine Ratio 37.1 (12.0-20.0); Calcium, Blood 7.2 mg/dL (8.5-10.1); Creatinine, Blood 1.94 mg/dL (0.40-1.00); Globulin, Blood 2.5 g/dL (2.2-4.0); Potassium, Blood 3.8 mmol/L (3.5-5.5); Total Protein, Blood 4.6 g/dL (6.4-8.2)
[2020-08-07 05:32] LABS: BASOPHILS ABSOLUTE AUTO 0.02 K/mm3 (0.00-0.23); BASOPHILS PERCENT AUTO 0 % (0-2); EOSINOPHILS ABSOLUTE AUTO 0.34 K/mm3 (0.00-0.68); EOSINOPHILS PERCENT AUTO 4 % (0-6); Hematocrit 25.9 % (33.0-51.0); Hemoglobin 8.2 g/dL (11.5-16.0); IMMATURE GRAN ABSOLUTE AUTO 0.11 K/mm3 (0.00-0.10); IMMATURE GRAN PERCENT AUTO 1 % (0-1); LYMPHOCYTES ABSOLUTE AUTO 0.86 K/mm3 (0.84-5.20); LYMPHOCYTES PERCENT AUTO 9 % (21-46); MONOCYTES ABSOLUTE AUTO 0.34 K/mm3 (0.16-1.47); MONOCYTES PERCENT AUTO 4 % (4-13); Mean Corpuscular HGB 30.6 pg (26.0-34.0); Mean Corpuscular HGB Conc 31.7 g/dL (31.5-36.5); Mean Corpuscular Volume 97 fL (80-100); Mean Platelet Volume 10.8 fL (9.1-12.4); NEUTROPHILS ABSOLUTE AUTO 7.95 K/mm3 (1.96-9.15); NEUTROPHILS PERCENT AUTO 83 % (41-73); NRBC ABSOLUTE 0.02 K/mm3 (0.00-0.02); NRBC Auto 0.2 /100 WBC (0.0-0.2); Platelet Count 189 K/mm3 (150-400); RDW Coefficient Variation 18.2 % (11.7-14.2); RDW Standard Deviation 59.9 fL (35.1-46.3); Red Blood Cell Count 2.68 M/mm3 (3.80-5.20); White Blood Cell Count 9.62 K/mm3 (4.00-11.30)
[2020-08-07 05:58] LABS: Anion Gap 7 mmol/L (6-16); Blood Urea Nitrogen 47 mg/dL (8-24); Bun/Creatinine Ratio 25.4 (12.0-20.0); CO2, Blood 21 mmol/L (21-32); Calcium, Blood 7.6 mg/dL (8.5-10.1); Chloride, Blood 112 mmol/L (98-108); Creatinine, Blood 1.85 mg/dL (0.40-1.00); Glomerular Filtration Rate 28 (60-); Glucose, Blood 97 mg/dL (70-99); Potassium, Blood 4.5 mmol/L (3.5-5.5); Sodium, Blood 140 mmol/L (136-145); Vancomycin, Random 13.3 ug/mL
[2020-08-07] MEDS ORDERED: FURO20 PO (22:23)
[2020-08-07] MEDS ORDERED: Lisinopril2.5 MG PO (22:24)
[2020-08-07] MEDS ORDERED: ADALAT CC30 M1 PO (22:25)
[2020-08-07] MEDS ORDERED: NYAMYC15 G1 TOP (22:26)
[2020-08-07] MEDS ORDERED: AMIT25 PO (22:28)
[2020-08-08 05:52] LABS: Vancomycin, Random 18.1 ug/mL
[2020-08-09 05:23] LABS: BASOPHILS ABSOLUTE AUTO 0.04 K/mm3 (0.00-0.23); BASOPHILS PERCENT AUTO 1 % (0-2); EOSINOPHILS PERCENT AUTO 6 % (0-6); Hematocrit 29.5 % (33.0-51.0); Hemoglobin 9.2 g/dL (11.5-16.0); IMMATURE GRAN ABSOLUTE AUTO 0.09 K/mm3 (0.00-0.10); IMMATURE GRAN PERCENT AUTO 1 % (0-1); LYMPHOCYTES ABSOLUTE AUTO 2.19 K/mm3 (0.84-5.20); LYMPHOCYTES PERCENT AUTO 26 % (21-46); MONOCYTES ABSOLUTE AUTO 0.57 K/mm3 (0.16-1.47); MONOCYTES PERCENT AUTO 7 % (4-13); Mean Corpuscular HGB 30.7 pg (26.0-34.0); Mean Corpuscular HGB Conc 31.2 g/dL (31.5-36.5); Mean Corpuscular Volume 98 fL (80-100); Mean Platelet Volume 10.6 fL (9.1-12.4); NEUTROPHILS PERCENT AUTO 60 % (41-73); Platelet Count 193 K/mm3 (150-400); RDW Coefficient Variation 17.6 % (11.7-14.2); RDW Standard Deviation 62.4 fL (35.1-46.3); White Blood Cell Count 8.49 K/mm3 (4.00-11.30)
[2020-08-09 05:56] LABS: Albumin, Blood 2.4 g/dL (3.4-5.0); Albumin/Globulin Ratio 0.7 (0.8-1.8); Bilirubin, Total 0.4 mg/dL (0.1-1.0); Calcium, Blood 8.6 mg/dL (8.5-10.1); Creatinine, Blood 1.68 mg/dL (0.40-1.00); Globulin, Blood 3.5 g/dL (2.2-4.0); Total Protein, Blood 5.9 g/dL (6.4-8.2)
[2020-08-09] MEDS ORDERED: OMEP20ER PO (11:34)
== END 2020-08-09 12:39 | disposition home or self-care (01) | DRG 380 ==
LOC: ER 22:29 → ICUE 08-04 00:06 → ICUW 08-04 00:06 → ICUE 08-04 02:00 → MEDS 08-06 14:30 → ENPENDDIS 08-09 11:32 → MEDS 08-09 12:39
PROVIDERS: Emergency Medicine; Internal Medicine; Internal Medicine Critical Care Medicine; ADMIT Internal Medicine
PROC: 0BH17EZ Insertion of Endotracheal Airway into Trachea, Via Natural or Artificial Opening (ICD-10-PCS; principal; 2020-08-03)
PROC: 02HV33Z Insertion of Infusion Device into Superior Vena Cava, Percutaneous Approach (ICD-10-PCS; 2020-08-03)
PROC: B548ZZA Ultrasonography of Superior Vena Cava, Guidance (ICD-10-PCS; 2020-08-03)
PROC: 5A1935Z Respiratory Ventilation, Less than 24 Consecutive Hours (ICD-10-PCS; 2020-08-04)
PROC: 3E033XZ Introduction of Vasopressor into Peripheral Vein, Percutaneous Approach (ICD-10-PCS; 2020-08-04)
PROC: 0DJ08ZZ Inspection of Upper Intestinal Tract, Via Natural or Artificial Opening Endoscopic (ICD-10-PCS; 2020-08-04)
PROC: 30233N1 Transfusion of Nonautologous Red Blood Cells into Peripheral Vein, Percutaneous Approach (ICD-10-PCS; 2020-08-04)
DX: K22.11 Ulcer of esophagus with bleeding (principal); A41.9 Sepsis, unspecified organism; R57.8 Other shock; J96.21 Acute and chronic respiratory failure with hypoxia; G93.41 Metabolic encephalopathy; N17.9 Acute kidney failure, unspecified; N18.4 Chronic kidney disease, stage 4 (severe); D63.8 Anemia in other chronic diseases classified elsewhere; F10.20 Alcohol dependence, uncomplicated; K44.9 Diaphragmatic hernia without obstruction or gangrene; K29.80 Duodenitis without bleeding; F31.9 Bipolar disorder, unspecified; E87.5 Hyperkalemia; Z88.5 Allergy status to narcotic agent; Z88.0 Allergy status to penicillin; Z88.8 Allergy status to other drugs, medicaments and biological substances; J44.9 Chronic obstructive pulmonary disease, unspecified; F03.90 Unspecified dementia, unspecified severity, without behavioral disturbance, psychotic disturbance, mood disturbance, and anxiety; Z86.73 Personal history of transient ischemic attack (TIA), and cerebral infarction without residual deficits; Z98.51 Tubal ligation status; Z96.652 Presence of left artificial knee joint; Z79.899 Other long term (current) drug therapy; Z79.82 Long term (current) use of aspirin; Z79.02 Long term (current) use of antithrombotics/antiplatelets; Z90.710 Acquired absence of both cervix and uterus; Z98.890 Other specified postprocedural states; Z90.721 Acquired absence of ovaries, unilateral; E03.9 Hypothyroidism, unspecified; M79.7 Fibromyalgia; F41.9 Anxiety disorder, unspecified; F17.210 Nicotine dependence, cigarettes, uncomplicated; I08.0 Rheumatic disorders of both mitral and aortic valves
CPT/HCPCS: 0241U; 31500; 31720; 36415; 36430; 36556; 36600; 51702; 71045; 80048; 80053; 80202; 81001; 82140; 82272; 82550; 82803; 83605; 83880; 84484; 85014; 85018; 85025; 85610; 85730; 86850; 86900; 86901; 86923; 87040; 87070; 87076; 87077; 87086; 87186; 87205; 92526; 92610; 93005; 93010; 93308; 93321; 94002; 94003; 94660; 96365; 96365-59; 96366-59; 96367; 96368; 96375; 96376; 97110; 97116; 97162; 97166; 97530; 97535; 99291-25; A9270; C1751; C9113; G0480; J0171; J0330; J0456; J0610; J0696; J1430; J1815; J2060; J2250; J2354; J2704; J3010; J3370; J3411; J3475; J7030; J7042; J7050; J7060; P9016; P9046

== ENCOUNTER 2020-09-23 11:03 | Emergency (ER) | payer MEDICARE, OTHER ==
[~2020-09-23] VITALS: Ht 154.9 cm; Wt 56.2 kg
[~2020-09-23 11:03] MED LIST changes: -ALBU90OI INH; -ATORVASTATIN CA20 MG PO; -LEVSOD88 PO; -METO50ER PO; +NYAMYC15 G1 TOP; +OMEP20ER PO; -QUETIAPINE FUMA50 M4 PO; -Zyloprim100 MG PO
[2020-09-23 11:36] LABS: BASOPHILS ABSOLUTE AUTO 0.01 K/mm3 (0.00-0.23); BASOPHILS PERCENT AUTO 0 % (0-2); EOSINOPHILS ABSOLUTE AUTO 0.27 K/mm3 (0.00-0.68); EOSINOPHILS PERCENT AUTO 4 % (0-6); Hematocrit 30.1 % (33.0-51.0); Hemoglobin 9.4 g/dL (11.5-16.0); IMMATURE GRAN ABSOLUTE AUTO 0.02 K/mm3 (0.00-0.10); IMMATURE GRAN PERCENT AUTO 0 % (0-1); LYMPHOCYTES ABSOLUTE AUTO 1.34 K/mm3 (0.84-5.20); LYMPHOCYTES PERCENT AUTO 20 % (21-46); MONOCYTES ABSOLUTE AUTO 0.29 K/mm3 (0.16-1.47); MONOCYTES PERCENT AUTO 4 % (4-13); Mean Corpuscular HGB 29.1 pg (26.0-34.0); Mean Corpuscular HGB Conc 31.2 g/dL (31.5-36.5); Mean Corpuscular Volume 93 fL (80-100); Mean Platelet Volume 11.2 fL (9.1-12.4); NEUTROPHILS ABSOLUTE AUTO 4.89 K/mm3 (1.96-9.15); NEUTROPHILS PERCENT AUTO 72 % (41-73); Platelet Count 182 K/mm3 (150-400); RDW Coefficient Variation 16.2 % (11.7-14.2); RDW Standard Deviation 55.6 fL (35.1-46.3); Red Blood Cell Count 3.23 M/mm3 (3.80-5.20); White Blood Cell Count 6.82 K/mm3 (4.00-11.30)
[2020-09-23 11:45] LABS: Albumin, Blood 3.4 g/dL (3.4-5.0); Albumin/Globulin Ratio 0.8 (0.8-1.8); Bilirubin, Total 0.3 mg/dL (0.1-1.0); Bun/Creatinine Ratio 17.3 (12.0-20.0); Calcium, Blood 9.6 mg/dL (8.5-10.1); Creatinine, Blood 2.26 mg/dL (0.40-1.00); Globulin, Blood 4.1 g/dL (2.2-4.0); Potassium, Blood 4.4 mmol/L (3.5-5.5); Total Protein, Blood 7.5 g/dL (6.4-8.2); Troponin I 0.053 ng/mL (0.000-0.040)
[2020-09-23] MEDS ORDERED: DOXY100 PO (12:43)
[2020-09-23] MEDS ORDERED: PRED20 PO (12:43)
== END 2020-09-23 13:54 | disposition home or self-care (01) ==
LOC: ER 11:03
PROVIDERS: Emergency Medicine
DX: J44.9 Chronic obstructive pulmonary disease, unspecified (principal); N18.30 Chronic kidney disease, stage 3 unspecified; Z88.0 Allergy status to penicillin; Z88.5 Allergy status to narcotic agent; Z88.8 Allergy status to other drugs, medicaments and biological substances; Z79.02 Long term (current) use of antithrombotics/antiplatelets; Z79.899 Other long term (current) drug therapy; Z86.73 Personal history of transient ischemic attack (TIA), and cerebral infarction without residual deficits
CPT/HCPCS: 36415; 71045; 80053; 84484; 85025; 93005; 93010; 96374; 99285-25; A9270

== ENCOUNTER 2020-09-26 11:26 | Emergency (ER) | payer MEDICARE, OTHER ==
[~2020-09-26] VITALS: Ht 154.9 cm; Wt 56.2 kg
[~2020-09-26 11:26] MED LIST changes: +DOXY100 PO; +PRED20 PO
[2020-09-26 12:00] LABS: BASOPHILS ABSOLUTE AUTO 0.01 K/mm3 (0.00-0.23); BASOPHILS PERCENT AUTO 0 % (0-2); EOSINOPHILS PERCENT AUTO 0 % (0-6); Hematocrit 29.5 % (33.0-51.0); Hemoglobin 9.3 g/dL (11.5-16.0); IMMATURE GRAN ABSOLUTE AUTO 0.03 K/mm3 (0.00-0.10); IMMATURE GRAN PERCENT AUTO 0 % (0-1); LYMPHOCYTES PERCENT AUTO 7 % (21-46); MONOCYTES ABSOLUTE AUTO 0.18 K/mm3 (0.16-1.47); MONOCYTES PERCENT AUTO 2 % (4-13); Mean Corpuscular HGB 29.1 pg (26.0-34.0); Mean Corpuscular HGB Conc 31.5 g/dL (31.5-36.5); Mean Corpuscular Volume 92 fL (80-100); Mean Platelet Volume 11.9 fL (9.1-12.4); NEUTROPHILS ABSOLUTE AUTO 8.35 K/mm3 (1.96-9.15); NEUTROPHILS PERCENT AUTO 91 % (41-73); Platelet Count 231 K/mm3 (150-400); RDW Standard Deviation 54.2 fL (35.1-46.3); White Blood Cell Count 9.17 K/mm3 (4.00-11.30)
[2020-09-26 12:16] LABS: Albumin, Blood 3.4 g/dL (3.4-5.0); Albumin/Globulin Ratio 0.8 (0.8-1.8); Bilirubin, Total 0.2 mg/dL (0.1-1.0); Bun/Creatinine Ratio 29.5 (12.0-20.0); Calcium, Blood 9.5 mg/dL (8.5-10.1); Creatinine, Blood 2.17 mg/dL (0.40-1.00); Globulin, Blood 4.3 g/dL (2.2-4.0); Potassium, Blood 4.5 mmol/L (3.5-5.5); Total Protein, Blood 7.7 g/dL (6.4-8.2)
== END 2020-09-26 14:29 | disposition home or self-care (01) ==
LOC: ER 11:26
PROVIDERS: Emergency Medicine
DX: J44.0 Chronic obstructive pulmonary disease with (acute) lower respiratory infection (principal); J18.9 Pneumonia, unspecified organism; J44.1 Chronic obstructive pulmonary disease with (acute) exacerbation; I12.9 Hypertensive chronic kidney disease with stage 1 through stage 4 chronic kidney disease, or unspecified chronic kidney disease; N18.30 Chronic kidney disease, stage 3 unspecified; E78.5 Hyperlipidemia, unspecified; E03.9 Hypothyroidism, unspecified; F17.210 Nicotine dependence, cigarettes, uncomplicated; F17.290 Nicotine dependence, other tobacco product, uncomplicated; Z88.0 Allergy status to penicillin; Z88.5 Allergy status to narcotic agent; Z88.8 Allergy status to other drugs, medicaments and biological substances; Z79.899 Other long term (current) drug therapy; Z86.73 Personal history of transient ischemic attack (TIA), and cerebral infarction without residual deficits
CPT/HCPCS: 36415; 71045; 80053; 85025; 93005; 93010; 99285-25

== ENCOUNTER 2020-11-12 10:54 | Inpatient (IN) | payer MEDICARE, OTHER ==
[~2020-11-12] VITALS: Ht 152.4 cm; Wt 55.8 kg
[2020-11-12 11:49] LABS: BASOPHILS ABSOLUTE AUTO 0.04 K/mm3 (0.00-0.23); BASOPHILS PERCENT AUTO 0 % (0-2); EOSINOPHILS ABSOLUTE AUTO 0.16 K/mm3 (0.00-0.68); EOSINOPHILS PERCENT AUTO 2 % (0-6); Hematocrit 28.7 % (33.0-51.0); Hemoglobin 8.7 g/dL (11.5-16.0); IMMATURE GRAN ABSOLUTE AUTO 0.05 K/mm3 (0.00-0.10); IMMATURE GRAN PERCENT AUTO 1 % (0-1); LYMPHOCYTES ABSOLUTE AUTO 1.19 K/mm3 (0.84-5.20); LYMPHOCYTES PERCENT AUTO 12 % (21-46); MONOCYTES ABSOLUTE AUTO 0.56 K/mm3 (0.16-1.47); MONOCYTES PERCENT AUTO 6 % (4-13); Mean Corpuscular HGB Conc 30.3 g/dL (31.5-36.5); Mean Corpuscular Volume 96 fL (80-100); Mean Platelet Volume 10.6 fL (9.1-12.4); NEUTROPHILS ABSOLUTE AUTO 7.74 K/mm3 (1.96-9.15); NEUTROPHILS PERCENT AUTO 80 % (41-73); Platelet Count 269 K/mm3 (150-400); RDW Coefficient Variation 19.3 % (11.7-14.2); RDW Standard Deviation 67.6 fL (35.1-46.3); White Blood Cell Count 9.74 K/mm3 (4.00-11.30)
[2020-11-12 12:24] LABS: Albumin, Blood 3.1 g/dL (3.4-5.0); Albumin/Globulin Ratio 0.7 (0.8-1.8); Bilirubin, Total 0.3 mg/dL (0.1-1.0); Bun/Creatinine Ratio 18.3 (12.0-20.0); Calcium, Blood 9.8 mg/dL (8.5-10.1); Creatinine, Blood 2.79 mg/dL (0.40-1.00); Globulin, Blood 4.4 g/dL (2.2-4.0); Potassium, Blood 4.3 mmol/L (3.5-5.5); Total Protein, Blood 7.5 g/dL (6.4-8.2)
[2020-11-12] MEDS ORDERED: ALBU90OI INH (12:38)
[2020-11-12] MEDS ORDERED: TOPI100 PO (12:38)
[2020-11-12 12:39] LABS: SARS-Cov-2 (COVID-19) PCR, MMC NEGATIVE (NEGATIVE)
[2020-11-12] MEDS ORDERED: AMIT25 PO (12:39)
[2020-11-12] MEDS ORDERED: Zyloprim100 MG PO (12:39)
[2020-11-12] MEDS ORDERED: ATOR40TA PO (12:40)
[2020-11-12] MEDS ORDERED: DONEPEZIL HCL5 M2 PO (12:40)
[2020-11-12] MEDS ORDERED: Hydralazine HCl10 MG PO (12:42)
[2020-11-12] MEDS ORDERED: METO50ER PO (12:43)
[2020-11-12] MEDS ORDERED: ADALAT CC30 M1 PO (12:44)
[2020-11-12] MEDS ORDERED: PANTOPRAZOLE SO40 M2 PO (12:46)
[2020-11-12] MEDS ORDERED: QUETIAPINE FUMA50 M4 PO (12:47)
[2020-11-12] MEDS ORDERED: LEVSOD88 PO (12:50)
[2020-11-12] MEDS ORDERED: CLOP75 PO (12:50)
[2020-11-12] MEDS ORDERED: DOXAZOSIN MESYLA2 MG PO (12:52)
--- NOTE | 2020-11-12 18:38 | NUR ---
SHIFT SUMMARY: ASSUMED CARE OF PATIENT AT 1556 UPON HER ARRIVAL FROM ED. A&O X 2-3, IS SLEEPY, NODS OFF DURING ADMISSION ASSESSMENT. PLACED ON TELEMETRY, SR-ST 95-103. O2 @ 4 L/MIN NC (2 L/MIN IS HOME BASELINE). BREATH SOUNDS VERY DIM THROUGHOUT WITH CRACKLES IN RLL, OCC PROD COUGH. LR INFUSING. GAVE TELEPHONE UPDATE TO HER SON OSWALDO THIS EVENING.
[2020-11-13 04:49] LABS: Hematocrit 22.4 % (33.0-51.0); Hemoglobin 6.9 g/dL (11.5-16.0); Mean Corpuscular HGB 29.2 pg (26.0-34.0); Mean Corpuscular HGB Conc 30.8 g/dL (31.5-36.5); Mean Corpuscular Volume 95 fL (80-100); Mean Platelet Volume 11.1 fL (9.1-12.4); Platelet Count 214 K/mm3 (150-400); RDW Coefficient Variation 19.3 % (11.7-14.2); RDW Standard Deviation 67.2 fL (35.1-46.3); Red Blood Cell Count 2.36 M/mm3 (3.80-5.20); White Blood Cell Count 4.97 K/mm3 (4.00-11.30)
--- NOTE | 2020-11-13 04:50 | NUR ---
SHIFT SUMMARY: PT IS ALERT AND ORIENTED WITH MINOR CONFUSION. PT IS CALM AND COOPERATIVE WITH CARE. PT CALLS APPROPRIATELY. PT IS A ONE PERSON ASSIST TO THE BSC. PT DENIES PAIN, NAUSEA, VOMITING, AND SOB. PT SLEPT MUCH OF THE NIGHT WHEN NOT DISTURBED. NO ACUTE CHANGES OR COMPLICATIONS THIS SHIFT. BED IN LOW POSITION, CALL LIGHT WITHIN REACH. WILL REPORT TO DAY NURSE.
[2020-11-13 05:09] LABS: Bun/Creatinine Ratio 19.5 (12.0-20.0); Calcium, Blood 9.2 mg/dL (8.5-10.1); Creatinine, Blood 2.66 mg/dL (0.40-1.00); Potassium, Blood 4.3 mmol/L (3.5-5.5)
--- NOTE | 2020-11-13 18:16 | NUR ---
PT RESTING IN BED EATING DINNER AFTER PM MEDICATION ADMIN. PT ALERT AND ORIENTED X4 WITH MILD CONFUSION AND FLIGHT OF IDEAS PRESENT. PT REMAINS A 1 ASSIST WITH FFW AND GAIT BELT. PT RECIEVED ONE UNIT OF BLOOD THIS SHIFT AND TOLERATED WELL, WAS MEDICATION COMPLIANT AND MADE NO COMPLAINTS. STAFF WILL CONTINUE TO MONITOR FOR CHANGES.
--- NOTE | 2020-11-14 01:53 | NUR ---
11/13/202009 PT SITTING ON EDGE OF BED, REPORTS SOB THAT INCREASES WITH EXERTION, ON 2L O2 NC AT 90%. PT ALSO APPEARS ANXIOUS. TELE NSR. NO OTHER APPARENT SIGNS OF DISTRESS. CALL LIGHT IS IN REACH.
--- NOTE | 2020-11-14 03:40 | NUR ---
0000 PT LYING IN BED, AWAKE, WATCHING TV. NO APPARENT SIGNS OF DISTRESS. DENIES NEED FOR ANYTHING AT THIS TIME. CALL LIGHT IS IN REACH.
--- NOTE | 2020-11-14 03:40 | NUR ---
11/13/20 2200 PT LYING IN BED, AWAKE, WATCHING TV. NO APPARENT SIGNS OF DISTRESS. CALL LIGHT IS IN REACH.
--- NOTE | 2020-11-14 03:41 | NUR ---
0200 PT LYING IN BED, AWAKE, WATCHING TV. NO APPARENT SIGNS OF DISTRESS. CALL LIGHT IS IN REACH.
--- NOTE | 2020-11-14 03:41 | NUR ---
PT LYING IN BED, AWAKE, NO APPARENT SIGNS OF DISTRESS. DENIES NEED FOR ANYTHING AT THIS TIME. CALL LIGHT IS IN REACH.
[2020-11-14 05:01] LABS: Hematocrit 27.9 % (33.0-51.0); Hemoglobin 8.8 g/dL (11.5-16.0); Mean Corpuscular HGB 29.6 pg (26.0-34.0); Mean Corpuscular HGB Conc 31.5 g/dL (31.5-36.5); Mean Corpuscular Volume 94 fL (80-100); Mean Platelet Volume 11.3 fL (9.1-12.4); Platelet Count 224 K/mm3 (150-400); RDW Coefficient Variation 18.2 % (11.7-14.2); RDW Standard Deviation 62.2 fL (35.1-46.3); Red Blood Cell Count 2.97 M/mm3 (3.80-5.20)
[2020-11-14 05:24] LABS: Albumin, Blood 2.9 g/dL (3.4-5.0); Anion Gap 7 mmol/L (6-16); Blood Urea Nitrogen 64 mg/dL (8-24); Bun/Creatinine Ratio 23.4 (12.0-20.0); CO2, Blood 24 mmol/L (21-32); Calcium, Blood 9.3 mg/dL (8.5-10.1); Chloride, Blood 101 mmol/L (98-108); Creatinine, Blood 2.74 mg/dL (0.40-1.00); Glomerular Filtration Rate 17 (60-); Glucose, Blood 121 mg/dL (70-99); Phosphorus, Blood 5.5 mg/dL (2.5-4.9); Potassium, Blood 4.9 mmol/L (3.5-5.5); Sodium, Blood 132 mmol/L (136-145)
--- NOTE | 2020-11-14 05:46 | NUR ---
PT IS AAO X 3-4, HX DEMENTIA , BIPOLAR, HAS FLIGHT OF IDEAS WHEN CONVERSING. ON 2L O2 NC AT 90%, HAS SOB THAT IS WORSE WITH EXERTION. PT ALSO HAS ANXIETY. SCD'S. TELE NSR. SOME REDNESS ON BUTT THAT IS NOT OPEN AND IS BLANCHABLE. BP WAS ELEVATED AT HS AT 186/94, SHE GOT SOME BP MEDS WITH HER HS MEDS AND THE DAY RN GAVE THE PO APRELSINE PRN AT 1837, BP CAME DOWN TO 178/96. BP THIS MORNING WAS 200/110, GAVE PO APRESALINE AGAIN, WILL RECHECK ABOUT AN HOUR AFTER IT WAS GIVEN.
--- NOTE | 2020-11-14 06:20 | NUR ---
PT IS SITTING UP IN BED, PT'S BP WAS 200/110, GAVE PO APRESALINE, WILL RECHECK ABOUT 0630. PT IS ALSO HAVING A LOT OF ANXIETY, NO PRN ANXIETY MEDS ORDERED. HAVING A HARD TIME GETTING AHOLD OF DR MIRANDA TO GET SOMETHING ORDERED, WILL KEEP TRYING. NO OTHER APPARENT SIGNS OF DISTRESS. CALL LIGHT IS IN REACH. NO OTHER CHANGES THIS SHIFT.
--- NOTE | 2020-11-14 08:49 | NUR ---
CALLED DR FOR CONSISTENTLY HIGH BLOOD PRESSURE; DR WILL PUT AN ORDER FOR PRN
--- NOTE | 2020-11-14 17:22 | NUR ---
SHIFT SUMMARY PT ALERT. PT C/O ABOUT NOT BEING ABLE TO SLEEP FOR 2 DAYS. PT MEDICATED SEROQUEL X1 PT DENIES PAIN AND ON 3L OF O2 SATS ABOVE 90S. BP SBP MORE THAN 200'S ; MEDICATED PER EMAR AND PER DR ORDERS. PT RECEIVED METOPROLOL INJ, SCHEDULED HYDRALAZINE AND PRN HYDRALIZINE. PT BP NOW IS AROUND 170'S SBP; DR AWARE. BED IS IN THE LOWEST POSITION AND CALL LIGHT WITHIN REACH
--- NOTE | 2020-11-15 03:58 | NUR ---
SUMMARY: PT A/OX4, CALLS APPROPRIATELY TO SPECIFY NEEDS AND IS 1PA W/FWW AND GB OOB. SHE REMAINS ON 3L O2 VIA NC W/RESPS E/U AT REST AND SOB NOTED UPON EXERTION. ABX, STEROIDS AND BX TX'S BEING RECIEVED FOR IMPROVEMENT IN RESP STATUS. SHE'D PREVIOUSLY BEEN VERY HYPERTENSIVE W/HIGH ANXIETY AND DIFFICULTY SLEEPING X2 DAYS. PO HYDRALAZINE AND SEROQUEL ARE BEING RECIEVED NOW FOR GOOD AFFECT. SHE WAS MUCH CALMER, SLEPT MAJORITY OF NIGHT AND IMPROVEMENT IN BP WAS NOTED. NO PRN MEDS WERE REQUIRED. 1/2 NS REMAINS INFUSING THEN WILL BE SL AFTER THIS BAG. PT IS NSR ON TELEMETRY W/HR 90'S BPM. R.BIG TOE WOUND W/ESCHAR OBSERVED, DAY RN WILL NEED TO F/U W/PODIATRY CONSULT. NO ACUTE CHANGES, VSS/ AFEBRILE. WCTM AND REPORT TO DAY RN.
[2020-11-15 04:57] LABS: Hemoglobin 8.8 g/dL (11.5-16.0); Mean Corpuscular HGB 29.7 pg (26.0-34.0); Mean Corpuscular HGB Conc 31.4 g/dL (31.5-36.5); Mean Corpuscular Volume 95 fL (80-100); NRBC ABSOLUTE 0.02 K/mm3 (0.00-0.02); NRBC Auto 0.2 /100 WBC (0.0-0.2); Platelet Count 230 K/mm3 (150-400); RDW Coefficient Variation 18.3 % (11.7-14.2); RDW Standard Deviation 62.4 fL (35.1-46.3); Red Blood Cell Count 2.96 M/mm3 (3.80-5.20); White Blood Cell Count 10.57 K/mm3 (4.00-11.30)
[2020-11-15 05:31] LABS: Albumin, Blood 2.5 g/dL (3.4-5.0); Anion Gap 9 mmol/L (6-16); Blood Urea Nitrogen 65 mg/dL (8-24); Bun/Creatinine Ratio 24.3 (12.0-20.0); CHOL/HDL RATIO 1.8; CO2, Blood 21 mmol/L (21-32); Calcium, Blood 8.8 mg/dL (8.5-10.1); Chloride, Blood 103 mmol/L (98-108); Cholesterol 163 mg/dL (50-200); Creatinine, Blood 2.67 mg/dL (0.40-1.00); Glomerular Filtration Rate 18 (60-); Glucose, Blood 90 mg/dL (70-99); HDL Cholesterol 90 mg/dL (>39); LDL/HDL RATIO 0.6; Low Density Lipoprotein Chol 51 mg/dL (0-110); Potassium, Blood 4.1 mmol/L (3.5-5.5); Sodium, Blood 133 mmol/L (136-145); Triglycerides 109 mg/dL (30-160); Very Low Density Lipoprot Chol 21 mg/dL (6-32)
--- NOTE | 2020-11-15 16:17 | NUR ---
SHIFT SUMMARY PT AxOx4 WITH OCCASIONAL FORGETFULNESS/SLOW TO RESPOND SPEECH. PT PLEASANT AND COOPERATIVE WITH CARE. PT BP HYPERTENSIVE TODAY. MEDICATED PER EMAR. PT BREATHING WELL ON 2L O2, WHICH IS BASELINE. PHONE CALL MADE TO DR PINEDA OFFICE TODAY FOR CONFIRMATION OF CONSULT. STILL AWAITING VISIT FROM AT THIS TIME. PER DR BRIDGES, PT WILL LIKELY DC TOMORROW. PT REPORTS FEELING MUCH BETTER TODAY AFTER SLEEPING WELL LAST NIGHT. PT CURRENTLY RESING IN BED WITH CALL LIGHT IN REACH. VITALS REVIEWED. PT DENIES ANY NEEDS AT THIS TIME.
[2020-11-16 05:08] LABS: Hematocrit 27.9 % (33.0-51.0); Hemoglobin 8.8 g/dL (11.5-16.0); Mean Corpuscular HGB 29.6 pg (26.0-34.0); Mean Corpuscular HGB Conc 31.5 g/dL (31.5-36.5); Mean Corpuscular Volume 94 fL (80-100); Mean Platelet Volume 11.2 fL (9.1-12.4); Platelet Count 219 K/mm3 (150-400); RDW Coefficient Variation 18.1 % (11.7-14.2); Red Blood Cell Count 2.97 M/mm3 (3.80-5.20); White Blood Cell Count 7.76 K/mm3 (4.00-11.30)
[2020-11-16 05:34] LABS: Albumin, Blood 2.6 g/dL (3.4-5.0); Anion Gap 8 mmol/L (6-16); Blood Urea Nitrogen 70 mg/dL (8-24); Bun/Creatinine Ratio 25.1 (12.0-20.0); CO2, Blood 26 mmol/L (21-32); Calcium, Blood 8.9 mg/dL (8.5-10.1); Chloride, Blood 101 mmol/L (98-108); Creatinine, Blood 2.79 mg/dL (0.40-1.00); Glomerular Filtration Rate 17 (60-); Glucose, Blood 89 mg/dL (70-99); Phosphorus, Blood 5.1 mg/dL (2.5-4.9); Potassium, Blood 3.9 mmol/L (3.5-5.5); Sodium, Blood 135 mmol/L (136-145)
--- NOTE | 2020-11-16 06:19 | NUR ---
SUMMARY: PT A/OX4 W/OCC FORGETFULLNESS BUT CALLS APPROPRIATELY TO SPECIFY NEEDS. SHE'S UP W/1PA, FWW AND GB AND SOB W/EXERTION HAS IMPROVED. SHE REMAINS ON 2LO2 VIA NC PER BASELINE AND RESPS E/U AT REST. SHE REPORTS FEELING "MUCH BETTER" TODAY AND DENIES ANXIETY. PT SLEPT MAJORITY OF NOCTE EXCEPT WHEN UP TO RESTROOM". SHE'S NSR ON TELEMETRY AT 90'S BPM. HYPERTENSION PERSISTS BUT IS SIGNFICANTLY BETTER THAN PREVIOUS. PT ASYMPTOMATIC OF ANY CARDIAC DISTRESS. NO ACUTE CHANGES, VSS/AFEBRILE. SHE IS POSSIBLE D/C BACK TO [facility] TODAY W/ F/U FOR R.BIG TOE W/ESCHAR OUPATIENT. WCTM AND REPORT TO DAY RN.
[2020-11-16] MEDS ORDERED: MIRALAX17 GM PO (12:52)
[2020-11-16] MEDS ORDERED: Prednisone10 MG PO (12:53)
[2020-11-16] MEDS ORDERED: LACT PO (12:54)
[2020-11-16] MEDS ORDERED: BUDESONIDE-FO10.2 G3 INH (12:55)
[2020-11-16] MEDS ORDERED: CEFU500T30 PO (12:56)
--- NOTE | 2020-11-16 14:45 | NUR ---
met pt. in bed resting she reports doing fine encouraged pt and offered prayers for the pt.
--- NOTE | 2020-11-16 16:39 | NUR ---
PT DISCHARGED AT 1150. VANDANA CAME AND DROPPED OF PORTABLE O2 TANK. PT HAD ALL PAPERWORK REVIEWED AND EDUCATIONAL MATERIAL SENT WITH HER. PT AOX3 AND COOPERATIVE OF CARE. PT ESCORTED OUT BY AID VIA WHEELCHAIR. FRIEND TO TRANSPORT HOME.
== END 2020-11-16 17:37 | disposition home or self-care (01) | DRG 291 ==
LOC: ER 10:54 → MEDS 13:39
PROVIDERS: Emergency Medicine; Internal Medicine; ADMIT Internal Medicine
PROC: 30233N1 Transfusion of Nonautologous Red Blood Cells into Peripheral Vein, Percutaneous Approach (ICD-10-PCS; principal; 2020-11-13)
DX: I50.33 Acute on chronic diastolic (congestive) heart failure (principal); J96.21 Acute and chronic respiratory failure with hypoxia; R57.8 Other shock; J18.9 Pneumonia, unspecified organism; I96 Gangrene, not elsewhere classified; N17.9 Acute kidney failure, unspecified; J44.0 Chronic obstructive pulmonary disease with (acute) lower respiratory infection; J44.1 Chronic obstructive pulmonary disease with (acute) exacerbation; N18.4 Chronic kidney disease, stage 4 (severe); E11.52 Type 2 diabetes mellitus with diabetic peripheral angiopathy with gangrene; I35.0 Nonrheumatic aortic (valve) stenosis; Z20.822 Contact with and (suspected) exposure to COVID-19; F01.50 Vascular dementia, unspecified severity, without behavioral disturbance, psychotic disturbance, mood disturbance, and anxiety; E87.5 Hyperkalemia; D63.1 Anemia in chronic kidney disease; E03.9 Hypothyroidism, unspecified; K21.9 Gastro-esophageal reflux disease without esophagitis; F31.9 Bipolar disorder, unspecified; D50.9 Iron deficiency anemia, unspecified; Z96.652 Presence of left artificial knee joint; Z99.81 Dependence on supplemental oxygen; Z98.890 Other specified postprocedural states; Z79.01 Long term (current) use of anticoagulants; Z79.899 Other long term (current) drug therapy; Z88.8 Allergy status to other drugs, medicaments and biological substances; Z88.0 Allergy status to penicillin; Z98.51 Tubal ligation status; E78.5 Hyperlipidemia, unspecified; Z86.73 Personal history of transient ischemic attack (TIA), and cerebral infarction without residual deficits; M19.90 Unspecified osteoarthritis, unspecified site; Z90.710 Acquired absence of both cervix and uterus; F17.200 Nicotine dependence, unspecified, uncomplicated
CPT/HCPCS: 36415; 36430; 71045; 80048; 80053; 80061; 80069; 83880; 84145; 85025; 85027; 86850; 86900; 86901; 86923; 93005; 93010; 93926; 94640; 94644; 94760; 96365; 96375; 97162; 97530; 99285-25; A9270; J0360; J0456; J0696; J1940; J2930; J7040; J7050; J7120; J7512; P9016; U0004

== ENCOUNTER 2020-11-23 18:00 | Inpatient (IN) | payer MEDICARE, OTHER ==
[~2020-11-23] VITALS: Ht 165.1 cm; Wt 56.7 kg
[~2020-11-23 18:00] MED LIST changes: +ADALAT CC30 M1 PO; +ALBU90OI INH; +AMIT25 PO; +ATOR40TA PO; +BUDESONIDE-FO10.2 G3 INH; +CEFU500T30 PO; +DONEPEZIL HCL5 M2 PO; +DOXAZOSIN MESYLA2 MG PO; +Hydralazine HCl10 MG PO; +LACT PO; +LEVSOD88 PO; +METO50ER PO; +MIRALAX17 GM PO; +PANTOPRAZOLE SO40 M2 PO; +Prednisone10 MG PO; +QUETIAPINE FUMA50 M4 PO; +Zyloprim100 MG PO
[2020-11-23 18:36] LABS: PCO2 Arterial 53.4 mmHg (35-45); PO2 Arterial 88.4 mmHg (80-100)
[2020-11-23 18:37] LABS: pH Blood Arterial 7.27 (7.35-7.45)
[2020-11-23 18:56] LABS: BASOPHILS ABSOLUTE AUTO 0.03 K/mm3 (0.00-0.23); BASOPHILS PERCENT AUTO 0 % (0-2); EOSINOPHILS ABSOLUTE AUTO 0.02 K/mm3 (0.00-0.68); EOSINOPHILS PERCENT AUTO 0 % (0-6); Hematocrit 31.9 % (33.0-51.0); Hemoglobin 9.7 g/dL (11.5-16.0); IMMATURE GRAN ABSOLUTE AUTO 0.05 K/mm3 (0.00-0.10); IMMATURE GRAN PERCENT AUTO 1 % (0-1); LYMPHOCYTES ABSOLUTE AUTO 0.87 K/mm3 (0.84-5.20); LYMPHOCYTES PERCENT AUTO 8 % (21-46); MONOCYTES ABSOLUTE AUTO 0.43 K/mm3 (0.16-1.47); MONOCYTES PERCENT AUTO 4 % (4-13); Mean Corpuscular HGB 29.1 pg (26.0-34.0); Mean Corpuscular HGB Conc 30.4 g/dL (31.5-36.5); Mean Corpuscular Volume 96 fL (80-100); Mean Platelet Volume 11.1 fL (9.1-12.4); NEUTROPHILS ABSOLUTE AUTO 9.11 K/mm3 (1.96-9.15); NEUTROPHILS PERCENT AUTO 87 % (41-73); Platelet Count 237 K/mm3 (150-400); RDW Coefficient Variation 19.1 % (11.7-14.2); RDW Standard Deviation 66.5 fL (35.1-46.3); Red Blood Cell Count 3.33 M/mm3 (3.80-5.20); White Blood Cell Count 10.51 K/mm3 (4.00-11.30)
[2020-11-23 19:19] LABS: Troponin I 0.394 ng/mL (0.000-0.040)
[2020-11-23 19:25] LABS: Albumin, Blood 3.1 g/dL (3.4-5.0); Albumin/Globulin Ratio 0.8 (0.8-1.8); Bilirubin, Total 0.3 mg/dL (0.1-1.0); Bun/Creatinine Ratio 14.6 (12.0-20.0); Calcium, Blood 9.2 mg/dL (8.5-10.1); Creatinine, Blood 3.35 mg/dL (0.40-1.00); Potassium, Blood 4.6 mmol/L (3.5-5.5); Total Protein, Blood 7.1 g/dL (6.4-8.2)
[2020-11-23 20:46] LABS: Thyroid Stimulating Hormone 2.95 uIU/mL (0.360-4.800)
--- NOTE | 2020-11-23 23:40 | NUR ---
PT HERE VIA STEPHANIE FROM ER. PT REQUESTING USE OF BSC - URINATED 300 CC CYU. BIPAP OFF FOR BSC USE. O2 PLACED ON VIA NC 3L - SATS WNL. PT THEN PLACED BACK TO BED, WITH SBA. PT ABLE TO STAND AND PIVOT TO BED. PT IS ALERT AND ORIENTED, RESPONDING TO ALL QUESTIONS ASKED APPROPRIATELY. PT HAS A PROMINENT HEART MURMUR. IV FLUSHED WITHOUT DIFFICULTY. ORIENTED TO CALL LIGHT/ROOM. BED ALARM PLACED ON FOR SAFETY. LS ARE CLEAR BUT DIM IN THE BASES BILATERALLY. FLUIDS AT BEDSIDE. BED IN LOW POSITION.
--- NOTE | 2020-11-23 23:50 | NUR ---
PT HAS A CHRONIC DRY GANGRENE R TOE. MEPILEX PLACED TO COCCYX - HALF DOLLAR SIZE BLANCHABLE REDNESS. CALL LIGHT WITHIN REACH. BED ALARM ON.
--- NOTE | 2020-11-24 06:23 | NUR ---
PT UP TO BSC WITH SBA ASSIST. PT HAS BEEN SLEEPING FOR APPX 4 HOURS. BIPAP OFF. 3L NC PLACED ON - CONTINUOUS BIOX ON - SATS WNL.
--- NOTE | 2020-11-24 06:47 | NUR ---
SHIFT SUMMARY - NO ACUTE CHANGES SINCE ADMIT LAST NOC. PT SLEPT FOR APPX 4-5 HOURS TONIGHT WITH BIPAP ON - 02/02/30%. PT CURRENTLY IS IN HIGH SEMI FOWLERS POSITION IN BED - 3L O2 ON VIA NC - SATS WNL - CONTINUOUS BIOX ON. PT HAS PALE SKIN TONE - SHE REPORTS THIS IS "HER NORMAL." IV TO LEFT UA FLUSHED WITHOUT DIFFICULTY. PT HAS BEEN RESPONDING TO ALL QUESTIONS ASKED APPROPRIATELY. FLUIDS AT BEDSIDE. BED ALARM ON FOR PT SAFETY. CALL LIGHT WITHIN REACH. BED IN LOW POSITION.
[2020-11-24 07:51] LABS: BASOPHILS ABSOLUTE AUTO 0.01 K/mm3 (0.00-0.23); BASOPHILS PERCENT AUTO 0 % (0-2); EOSINOPHILS PERCENT AUTO 0 % (0-6); Hematocrit 29.5 % (33.0-51.0); Hemoglobin 9.1 g/dL (11.5-16.0); IMMATURE GRAN ABSOLUTE AUTO 0.03 K/mm3 (0.00-0.10); IMMATURE GRAN PERCENT AUTO 1 % (0-1); LYMPHOCYTES PERCENT AUTO 13 % (21-46); MONOCYTES ABSOLUTE AUTO 0.09 K/mm3 (0.16-1.47); MONOCYTES PERCENT AUTO 1 % (4-13); Mean Corpuscular HGB 29.8 pg (26.0-34.0); Mean Corpuscular HGB Conc 30.8 g/dL (31.5-36.5); Mean Corpuscular Volume 97 fL (80-100); Mean Platelet Volume 12.1 fL (9.1-12.4); NEUTROPHILS ABSOLUTE AUTO 5.33 K/mm3 (1.96-9.15); NEUTROPHILS PERCENT AUTO 85 % (41-73); Platelet Count 211 K/mm3 (150-400); Red Blood Cell Count 3.05 M/mm3 (3.80-5.20); White Blood Cell Count 6.26 K/mm3 (4.00-11.30)
[2020-11-24 08:11] LABS: Bun/Creatinine Ratio 13.8 (12.0-20.0); Calcium, Blood 9.2 mg/dL (8.5-10.1); Creatinine, Blood 3.85 mg/dL (0.40-1.00); Potassium, Blood 4.5 mmol/L (3.5-5.5)
--- NOTE | 2020-11-24 08:51 | NUR ---
Pt awakens easily, very cheerful and conversant. STates frequent hospitalizations, for pneumonia this year. Sitting up in bed, states that she did get breakfast.
--- NOTE | 2020-11-24 11:30 | NUR ---
Palliative care Chi called to speak with pt. She is talking about hospice with Dr Santiago now.
--- NOTE | 2020-11-24 13:08 | NUR ---
Spiritual care visit conducted. Patient is lying in bed and alert. Patient talks about her family she tells me the loved ones that "have gone before" her are far out number the ones that are left. She tells me that she is "ready to go." I talk with her about code status and fill out a POLST together. Patient changes her code status from Full Code to Limited because she wants to finish the treatments she is receiving currently. We also discuss hospice and patient affirms that would prefer to go home on hospice. Izzy shares about her strong Spiritism fatih and I provide prayer for patient. Patient shows signs of increased peace. I will continue to remain available to patient and family.
--- NOTE | 2020-11-24 16:04 | NUR ---
SPO2 88-90% ON 1 L/MIN O2 delivery. Increased to 2 l/min, which is closer to her home dose of 2.5/min normal delivery.
[2020-11-25 04:21] LABS: BASOPHILS ABSOLUTE AUTO 0.01 K/mm3 (0.00-0.23); BASOPHILS PERCENT AUTO 0 % (0-2); EOSINOPHILS PERCENT AUTO 0 % (0-6); Hematocrit 27.3 % (33.0-51.0); Hemoglobin 8.6 g/dL (11.5-16.0); IMMATURE GRAN ABSOLUTE AUTO 0.09 K/mm3 (0.00-0.10); IMMATURE GRAN PERCENT AUTO 1 % (0-1); LYMPHOCYTES ABSOLUTE AUTO 0.62 K/mm3 (0.84-5.20); LYMPHOCYTES PERCENT AUTO 4 % (21-46); MONOCYTES ABSOLUTE AUTO 0.35 K/mm3 (0.16-1.47); MONOCYTES PERCENT AUTO 2 % (4-13); Mean Corpuscular HGB 29.8 pg (26.0-34.0); Mean Corpuscular HGB Conc 31.5 g/dL (31.5-36.5); Mean Corpuscular Volume 95 fL (80-100); NEUTROPHILS ABSOLUTE AUTO 14.47 K/mm3 (1.96-9.15); NEUTROPHILS PERCENT AUTO 93 % (41-73); NRBC ABSOLUTE 0.02 K/mm3 (0.00-0.02); NRBC Auto 0.1 /100 WBC (0.0-0.2); Platelet Count 226 K/mm3 (150-400); RDW Coefficient Variation 18.8 % (11.7-14.2); RDW Standard Deviation 65.1 fL (35.1-46.3); Red Blood Cell Count 2.89 M/mm3 (3.80-5.20); White Blood Cell Count 15.54 K/mm3 (4.00-11.30)
[2020-11-25 04:56] LABS: Bun/Creatinine Ratio 15.7 (12.0-20.0); Calcium, Blood 9.1 mg/dL (8.5-10.1); Creatinine, Blood 4.21 mg/dL (0.40-1.00); Potassium, Blood 4.6 mmol/L (3.5-5.5)
--- NOTE | 2020-11-25 06:45 | NUR ---
SHIFT SUMMARY PT HAS SLEPT THORUGH MOST OF THE NIGHT WITH NO PROBLEMS. SHE REMAINS ON 2 L O2 VIA NC, BREATHING TX GIVEN PRN & PER EMAR. PT HAD A SMALL PANIC ATTACK THIS AM & STATED THAT SHE IS NOT SURE HOW TO HANDLE THIS ALL AT HOME, PT WAS REASSURED THAT HOSPICE WOULD CREATE A D/C PLAN. PT STATED SHE DOES NOT HAVE ANYONE CURRENTLY LIVING WITH HE BUT DOES HAVE FAMILY NEAR BY. WCTM & REPORT TO DAY RN
--- NOTE | 2020-11-25 11:10 | NUR ---
Connie was awakened for vital signs this morning, for doctor rounding and then for breakfast, medications and morning assessment. She seems to be tired, and did not want to get up for breakfast, nor did she want the light to be turned on in the room until later. systems requirements planner and Dr. Santiago discussed with pt plan for going home, what family support is available, and what resources are at home for her. systems requirements planner Shayy to call the pt's daughter to discuss plan for the pt coming home. Pt states that she lives with her daughter, and that they have "all kinds of other people" who live with them, as boarders. OOB to [facility] with minimal assistance.
--- NOTE | 2020-11-25 13:33 | NUR ---
Spoke with Creative Writing English Professor Linda, Primary RN Ailyn, and discussed case. Pt is requesting hospice upon D/C from the hospital. Pt resting in bed upon arrival. Pt appears mildy dyspneic and moderately anxious. Pt reports experiencing anxiety at baseline that worsens when her dyspnea increases. Engaged in therapeutic listening as Pt expresses her wishes to D/C home with hospice. Educated on hospice philosophy and answered questions. Pt reports living at home with other boarders who share the house. She reports her ex daughter in law Ira comes and provides support when she can. Her son Jevon is a coach tour driver who is home on the weekends. Along with requesting hospice services Pt is requesting for assistance with finding a caregiver. Pt reports no other concerns at this time. Attempted to contact Pt's ex daughter in law Ira with contact number listed on face sheet. No voicmail set up to leave a message. Called and spoke with Pt's son Jevon. Relayed Pt's wishes and educated on hospice philosophy. Discussed the importance of family discussing caregiver support and if needed family coming together to assist with needs until caregivers are set up. Jevon states he thinks Pt might have [employer] set up and reports Pt's casemanager is Ariadna or Daxa. Jevon gives this RN a different number for his ex Ira to contact. He reports Ira will have more information regarding [employer]. Jevon provides an updated phone number for Ira. [phone]. Called and spoke with Ira. She reports Pt does have an [employer] worker and has requested assistance with mechanical maintenance support. Ira is requesting Pt not be D/C until Sunday. Pt is currently living in [employer] garage and Ira reports with current weather the garage is too hot for Pt. Ira reports plan to install a wall in her home this weekend for Pt to have privacy and a cooler room. Spoke with Creative Writing English Professor Linda and relayed information. Palliative Care will remain available.
--- NOTE | 2020-11-25 16:35 | NUR ---
Pt states that she feels more relaxed and less painful. At this time, she is having high blood pressure. Medicated as ordered and scheduled; will recheck her blood pressure in 30-60 minutes. She has no complaints at this time.
--- NOTE | 2020-11-25 18:14 | NUR ---
Awake, alert, cooperative, and for the most part not anxious. Once today she did request something to help with her overall tense muscles and anxiety. She responded well to oral PRN ativan. Wearing 2.5 l/min O2 delivery (home dose). OOB with minimal assistance to BSC/chair, but for the most part she declines activity. Her ex-daughter in law FAINA was here this afternoon and spoke with Charly oakes RN. Faina is saying that they are moving the pt from the garage into an area of the home which is air-conditioned, and need until Sunday to get everything ready for the pt to come home on Hospice.
--- NOTE | 2020-11-26 06:12 | NUR ---
SHIFT SUMMARY PATIENT FOUND TO BE A&OX3 AT START OF SHIFT, BUT BECAME INCREASINGLY RESTLESS AND ANXIOUS SHIFT WENT ON. HAD STARTED ON HOME DOSE OF 2.5LNC WITH INCREASED O2 DEMANDS IN THE EARLY AM. COULD NOT CATCH HER BREATH OR GET COMFORTABLE IN BED. NOT BEING COMPLIANT WITH CARE AT THIS TIME AND REFUSED TO RELAX/REST. REFUSED LABS AND 0400 VITALS WELL. WOB INCREASED SIGNIFICANTLY AND BREATHING TREATMENTS AND PRN ORAL ATIVAN DID NOT HELP WITH THIS. NOTABLE INSP AND EX WHEEZE WITH NO IMPROVEMENT WITH RT TREATMENTS. MD TO BEDSIDE TO EVALUATE. IV SOLUMEDROL AND ATIVAN ORDERED AND GIVEN WITH DECENT IMPROVEMENT TO WOB AND GREAT IMPROVEMENT TO ANXIETY. WAS SATING LOW 90'S ON 10LNC BUT WITH WOB BIPAP PLACED AFTER PRN ATIVAN GIVEN FOR ANXIETY. TOLERATING AT THIS TIME. STILL TACHYPENIC WITH RR OF 34. SON ARRIVED AND POA MADE PATIENT OFFICAILLY COMFORT MEASURES.PATIENT RESTING COMFORTABLY AT THIS TIME. WILL CONTINUE TO MONITOR UNTIL REPORT GIVEN TO DAYSHIFT RN.
--- NOTE | 2020-11-26 09:19 | NUR ---
Comfort Care Visit Pt resting in bed with her eyes closed and is wearing BIPAP. Pt appears comfortable with no S/S of distress at this time. This RN left Pt undisturbed. Spoke with Abe Wolfe, Primary RN Yaima and discussed case. Plan will be to D/C BIPAP when family arrives and offer O2 via NC. Reviewed comfort medications. Palliative Care will F/U when family arrives.
--- NOTE | 2020-11-26 13:08 | NUR ---
F/U visit this afternoon. Pt resting in bed with her eyes closed and is on BIPAP. No family present at this time. Pt appears comfortable. Discussed case with nuclear waste management engineer Sonia who is covering primary RN. Discussed D/C of BIPAP and to offer comfort medication. Sonia offers comfort medications and BIPAP taken off. Discussed strategies for comfort. Palliative Care will continue to F/U for symptom management.
--- NOTE | 2020-11-26 16:52 | NUR ---
Multiple visits today. Pt currently resting in bed with her eyes closed. Pt appears more relaxed but breathing still appears moderately labored. Discussed case with Primary RN Yaima and reviewed comfort medications. Palliative Care will remain available for symptom management.
--- NOTE | 2020-11-26 18:08 | NUR ---
SHIFT SUMMARY; ASSUMED CARE AT 0700, REMAINS ON COMFORT CARE. FAMILY AT BEDSIDE THROUGHOUT DAY, MEDICATED PER EMAR FOR ANXIETY AND WORK OF BREATHING. BIPAP REMOVED TODAY AND PLACED ON 5L 02 PTS BASELINE 02. ATTENDS CHANGE THROGHOUT SHIFT AND REPOSITIONING FOR COMFORT. REPORT GIVEN TO MEDICAL FLOOR RN TO ASSUME CARE.
--- NOTE | 2020-11-26 18:48 | NUR ---
1843 RECEIVED PT TO RM 359 VIA BED FROM PCU 6. PER REPORT FROM DANGELO TANNER, PT MADE C/C LAST NOC. FAMILY TO AHEAD OF PT, LEAVING PHONE NO, ON WHITE BOARD. PT RESTING QUIETLY WITH NO S/SX OF DISTRESS NOTED AT THIS TIME.
--- NOTE | 2020-11-27 05:15 | NUR ---
SHIFT SUMMARY PT MOSTLY UNRESPONSIVE. SOME SLIGHT MOANING WITH MOVEMENT. PT APPEARED COMFORTABLE THIS EVENING. BREATHING IS SHALLOW WITH APNEIC SPELLS. PT DID NOT APPEAR TO BE SOB, BREATHING DID NOT APPEAR LABORED. NO PRN MEDICATIONS NEEDED SO FAR THIS EVENING. PT REMAINED ON 5 L FOR COMFORT. NO FAMILY IN THIS EVENING. WILL CONTINUE TO MONITOR.
--- NOTE | 2020-11-27 17:28 | NUR ---
SUMMARY PT RESTING QUIETLY IN BED, IS ON COMFORT CARE, MED PER EMAR FOR AIR HUNGER, FAMILY HAS BEEN IN TO VISIT, DC HOME WITH HOSPICE NEXT WEEK, NO ACUTE CHANGES, WILL CONT TO MONITOR
--- NOTE | 2020-11-28 04:58 | NUR ---
SHIFT SUMMARY PT SLEPT COMFORTABLY MOST OF THE EVENING. PT DID WAKE THIS AM AND SAT UP, KEPT REPEATING, "I NEED TO SLEEP", ANXIOUS. REQURING ATIVAN TO RELAX AND REST AGAIN. ATTEMPTED TO CHANGE PT'S ATTENDS AT THIS TIME BUT PT BECAME MORE ANXIOUS WITH THIS. PT WAS LEFT TO REST AFTER SHE HAD CALMED. SIGNIFICANT OTHER AT BEDSIDE AT START OF SHIFT BUT WENT HOME SHORTLY AFTER. PT RESTING AT THIS TIME, APPEARS COMFORTABLE. WILL CONTINUE TO MONITOR.
--- NOTE | 2020-11-28 14:28 | NUR ---
PT FAMILY AT THE BEDSIDE, PT MEDICATED FOR PAIN AND ANXIETY, PT PASSED AT 1320, FAMILY PRESENT
--- NOTE | 2020-11-28 15:20 | NUR ---
PT TAKEN OUT VIA [facility]
--- NOTE | 2020-11-28 19:19 | NUR ---
Multiple visits pt progressing and eminent. oxygen titirated off and family at bedside pt . dentures and personal belongings sent home now jewlery on patient.
== END 2020-11-28 13:20 | DRG 291 ==
LOC: ER 18:00 → PCU 20:28 → MEDS 11-26 18:37
PROVIDERS: Emergency Medicine; Family Medicine; ADMIT Internal Medicine
PROC: 5A09357 Assistance with Respiratory Ventilation, Less than 24 Consecutive Hours, Continuous Positive Airway Pressure (ICD-10-PCS; principal; 2020-11-23)
DX: I13.0 Hypertensive heart and chronic kidney disease with heart failure and stage 1 through stage 4 chronic kidney disease, or unspecified chronic kidney disease (principal); I50.33 Acute on chronic diastolic (congestive) heart failure; J96.21 Acute and chronic respiratory failure with hypoxia; N18.4 Chronic kidney disease, stage 4 (severe); N17.9 Acute kidney failure, unspecified; Z66 Do not resuscitate; Z51.5 Encounter for palliative care; J44.1 Chronic obstructive pulmonary disease with (acute) exacerbation; I24.8 Other forms of acute ischemic heart disease; F31.9 Bipolar disorder, unspecified; E78.5 Hyperlipidemia, unspecified; E03.9 Hypothyroidism, unspecified; F12.90 Cannabis use, unspecified, uncomplicated; M10.9 Gout, unspecified; F17.210 Nicotine dependence, cigarettes, uncomplicated; Z88.0 Allergy status to penicillin; Z88.5 Allergy status to narcotic agent; D63.1 Anemia in chronic kidney disease; D50.9 Iron deficiency anemia, unspecified; F01.50 Vascular dementia, unspecified severity, without behavioral disturbance, psychotic disturbance, mood disturbance, and anxiety; F41.9 Anxiety disorder, unspecified; I35.0 Nonrheumatic aortic (valve) stenosis; Z96.652 Presence of left artificial knee joint; Z88.8 Allergy status to other drugs, medicaments and biological substances; Z79.899 Other long term (current) drug therapy; Z79.02 Long term (current) use of antithrombotics/antiplatelets; Z98.51 Tubal ligation status; Z90.710 Acquired absence of both cervix and uterus; Z99.81 Dependence on supplemental oxygen; Z72.89 Other problems related to lifestyle
CPT/HCPCS: 36415; 36600; 71045; 80048; 80053; 82803; 83880; 84145; 84443; 84484; 85025; 93005; 93010; 94640; 94644; 94660; 94667; 94668; 94760; 94762; 96365; 96375; 99285-25; A9270; J0696; J1650; J1940; J2060; J2920; J2930; J3475; J7512